=== PATIENT | male | born 1960 | race Hispanic/Latino ===

== ENCOUNTER 2019-02-17 08:01 | Inpatient (IN) | payer MEDICARE ==
[2019-02-17] MEDS ORDERED: Ondansetron PF 4 MG/2 ML Vial ONE (08:10)
[2019-02-17 08:47] LABS: ALT (SGPT) Less than 7 U/L (8-55); AST (SGOT) 9 U/L (5-34); Albumin 4.1 g/dL (3.5-5.0); Alkaline Phosphatase 83 U/L (40-150); Anion Gap 21 mmol/L (10-20); BUN (Urea Nitrogen) 16 mg/dL (8.4-25.7); Bilirubin, Total 0.3 mg/dL (0.2-1.2); Calc. Creatinine Clearance 0 mL/min (70-130); Chloride 109 mmol/L (98-107); Estimated GFR-MDRD 46; Globulin 3.4 g/dL (2.4-3.5); Glucose 424 mg/dL (70-105); Magnesium 1.7 mg/dL (1.6-2.6); Phosphorus 2.4 mg/dL (2.3-4.7); Potassium 4.3 mmol/L (3.5-5.1); Protein, Total 7.5 g/dL (6.0-8.3); Sodium 134 mmol/L (136-145)
[2019-02-17 08:50] LABS: Carbon Dioxide 8 mmol/L (22-29)
[2019-02-17] MEDS ORDERED: HUMULIN R 100 UNITS in Sodium Chloride 0.9% 100 ML IVPB SCH ×2 (09:00→12:00)
[2019-02-17] MEDS ORDERED: Ondansetron ODT 4 MG TAB SL PRN (09:00)
[2019-02-17] MEDS ORDERED: Lactated Ringer's 1,000 ML IV SCH (09:00)
[2019-02-17] MEDS ORDERED: Ondansetron PF 4 MG/2 ML Vial IVP PRN ×2 (09:00→12:00)
[2019-02-17 09:07] LABS: #Lymphocytes 1.3 thou/uL (1.20-3.40); #Monocytes 0.7 thou/uL (0.11-0.59); #Neutrophils 3.4 thou/uL (1.40-6.50); %Basophils 0.8 % (0.0-1.0); %Eosinophils 0.8 % (0.0-10.0); %Lymphocytes 24.1 % (21.0-51.0); %Monocytes 12.2 % (0.0-10.0); %Neutrophils 62.1 % (42.0-75.0); Anisocytosis SLIGHT = 6-15 cells (100X) (0-5/hpf); Hemoglobin 6.3 g/dL (14.0-18.0); Hypochromia SLIGHT = 6-15 cells (100X) (0-5/hpf); MDiff Complete? YES; Mean Corpuscular HGB CONC 29.2 g/dL (32.0-36.0); Mean Corpuscular Hemoglobin 23.2 pg (27.0-31.0); Mean Corpuscular Volume 79.6 fL (78.0-98.0); Mean Platelet Volume 9.3 fL (7.4-10.4); Platelet Count 424 thou/uL (130-400); Poikilocytosis SLIGHT = 6-15 cells (100X) (0-5/hpf); RBC Distribution Width 20.8 % (11.5-14.5); Red Blood Cell (RBC) Count 2.72 mill/uL (4.70-6.10); White Blood Cell (WBC) Count 5.5 thou/uL (4.8-10.8)
--- NOTE | 2019-02-17 09:39 | PDOC.FPRHP ---
- History of Present Illness Chief Complaint: fatigue and dehydration History of Present Illness: Patient reports increasing worsening fatigue since Wednesday. Decreased appetite & PO intake. Denies any N/V/diarrhea but does endorse constipation since he has not been eating at all this week. No melena or hematochezia. Checks his BG at home and says "they have been running really high." Reported h/o vit D def and anemia that he has just treated with supplementation in the past. Has never received a blood transfusion. Colonoscopy in [place] > 3 years ago that was significant for polyps but does not recall when it was recommended that he have another procedure. His father of colon cancer at 57. Has not taken home meds for last 3 days. States that this morning he was so weak that he was unable to ambulate to the bathroom prompting him to go to the ED today. ED Course: Labs in the ED: glucose 414, Hgb 6.3 - Allergies/Adverse Reactions Allergies Allergy/AdvReac Type Severity Reaction Status Date / Time Iodine and Iodide Containing Allergy Verified 02/17/19 08:58 Produc - Home Medications Medication Instructions Recorded Confirmed Type Insulin Degludec [Tresiba] 35 unit SQ DAILY 02/17/19 02/17/19 History Metoprolol Succinate 100 mg PO DAILY 02/17/19 02/17/19 History QUEtiapine Fumarate [Quetiapine 50 mg PO HS 02/17/19 02/17/19 History Fumarate ER] Sertraline HCl 100 mg PO HS 02/17/19 02/17/19 History Topiramate 50 mg PO BID 02/17/19 02/17/19 History - History PMHx: DMII, anemia, migraines, depression, anxiety, HTN PSHx: gastric bypass (1999) & hernia repair FHx: CVA- Sister DMII- Mother & sisters Father from colon CA at age 56. Social: No TAD. Lives at home and is on disability. - Review of Systems General: denies: fever/chills Eyes: denies: eye pain, vision changes ENT: denies: nasal congestion, rhinorrhea Respiratory: reports: cough, shortness of breath Cardiovascular: denies: chest pain, palpitation Gastrointestinal: reports: nausea, constipation. denies: vomiting, diarrhea, GI bleeding Genitourinary: reports: polyuria. denies: dysuria Skin: denies: rashes, lesions Musculoskeletal: denies: pain, tenderness Neurological: reports: other (lightheadedness). denies: syncope Psychological: reports: anxiety, depression - Vital signs BP: 132/71 HR: 77 RR: 16 Tmax: 98.4F Pox: 100% on RA Wt: 111 kg - Physical Exam Constitutional: NAD, awake, alert and oriented HEENT: PERRLA, EOMI -HEENT: Pale conjunctiva, dry mucous membranes Neck: supple, no LAD Heart: RRR, normal S1/S2, pulses present, no edema Lungs: CTAB, good air movement Abdomen: soft, non-tender, bowel sounds present Musculoskeletal: normal structure, normal tone Neurological: no focal deficit -Skin: Pale Heme/Lymphatic: no unusual bruising or bleeding, no purpura, no petechia Psychiatric: normal mood and affect, good judgment and insight FMR H&P: Results - Labs Result Diagrams: 02/17/19 08:20 02/17/19 15:26 Lab results: WBC 5.5 thou/uL (4.8-10.8) 02/17/19 08:20 Hgb 6.3 g/dL (14.0-18.0) L 02/17/19 08:20 Hct 21.6 % (42.0-52.0) L 02/17/19 08:20 MCV 79.6 fL (78.0-98.0) 02/17/19 08:20 Plt Count 424 thou/uL (130-400) H 02/17/19 08:20 Neutrophils % 62.1 % (42.0-75.0) 02/17/19 08:20 Sodium 134 mmol/L (136-145) L 02/17/19 08:20 Potassium 4.3 mmol/L (3.5-5.1) 02/17/19 08:20 Chloride 109 mmol/L (98-107) H 02/17/19 08:20 Carbon Dioxide 8 mmol/L (22-29) L* 02/17/19 08:20 BUN 16 mg/dL (8.4-25.7) 02/17/19 08:20 Creatinine 1.54 mg/dL (0.7-1.3) H 02/17/19 08:20 Glucose 424 mg/dL (70-105) H 02/17/19 08:20 Lactic Acid 0.7 mmol/L (0.5-2.2) 02/17/19 08:58 Calcium 9.0 mg/dL (7.8-10.44) 02/17/19 08:20 Total Bilirubin 0.3 mg/dL (0.2-1.2) 02/17/19 08:20 AST 9 U/L (5-34) 02/17/19 08:20 ALT Less than 7 U/L (8-55) L 02/17/19 08:20 Alkaline Phosphatase 83 U/L (40-150) 02/17/19 08:20 Serum Total Protein 7.5 g/dL (6.0-8.3) 02/17/19 08:20 Albumin 4.1 g/dL (3.5-5.0) 02/17/19 08:20 FMR H&P: A/P - Plan DKA: - BG 424, gap of 16, + ketones - Recent medication non-compliance - s/p 1L NS in the ED. Will start on an insulin drip and NS w/ 20mEq of K @ 250mL/hr. - Will keep NPO and check Q4H BMPs until gap closes. - PRN IV zofran for nausea. - DKA protocol initiated Symptomatic anemia: - Hgb of 6.3, with hgb of 15 one month ago - FHx of colon CA in father, previous scope >3 years ago significant for polyps - FOBT ordered - Consult GI - 2U of PRBCs to be transfused now and will recheck a Hemagram 4 hours after 2nd unit has been transfused. MIAN: - Cr of 1.54 on admission and WNLs at 0.9 on 01/24 per chart review. Likely pre- renal 2/2 decreased PO intake and polyuria from DKA. - Will continue IVFs per DKA protocol & continue to monitor w/ QD BMPs. Possible UTI: - Patient's UA significant for high ketones, BG, LE and 11-20 WBCs but no bacteria or blood noted. - Urine culture pending. Will consider initiating abx pending culture results as patient is currently asymptomatic. DMII: - Patient in DKA as described above. - Will address this as outline above and will switch back to home regimen once tolerating PO and DKA has resolved. HTN: - Will resume home meds once tolerating PO. Migraines: - Will resume home meds once tolerating PO. Anxiety/depression: - Will resume home meds once tolerating PO. Disposition/LOS: Dispo: Stable, admit to ICU on DKA protocol and transfuse LOS: 2-4 FMR H&P: Upper Level - Pertinent history 58YOM with a PMH significant for DMII and HTN who presented to the ED via EMS for hyperglycemia. Per the patient he has not been feeling like his usual self for the last couple of weeks with reported progressively worsening fatigue and SOB on exertion. Per chart review he had a Hgb level of 5.5 in clinic ~2 weeks ago after presenting there complaining of fatigue. He finally decided to come to the ED today because this morning his symptoms were noted to be so severe that he could barely walk from his bedroom to the bathroom without getting severely fatigued and SOB. He reports that he has not taken any of his home meds since ~ Wednesday and has had associated decreased PO intake with nausea but no vomiting or diarrhea. HE He also reports polyuria and polydipsia. Denies any associated fever, abdominal pain, dysuria or hematuria but reports chills. - Pertinent findings Laboratory Tests 02/17/19 09:39 Urine Protein 30 A Urine Glucose (UA) Greater than 1000 A Urine Ketones 150 A Ur Leukocyte Esterase 75 A Urine WBC 11-20 A Urine Bacteria None Seen Hgb 6.3 Na 134 K 4.3 Cl 109 HCO3 8 BUN 16 Cr 1.59 BG 424 Serum ketones 6.81 PE: Vitals: BP: 132/71 HR: 77 RR: 16 Tmax: 98.4F Pox: 100% on RA Wt: 111 kg GEN: Laying in bed in NAD HEENT: sclera and conjunctive clear with conjunctival pallor noted; Dry mucus membranes CV: RRR, no murmurs Resp: CTAB, no respiratory distress GI: soft, nondistended, non-TTP, normal bowel sounds MSK: Full ROM in all extremities Neuro: No focal deficits & stock worker and deliverer grossly intact Skin: No rashes noted Heme: No abnormal bruising noted Psych: A&Ox4 - Plan Date/Time: 02/17/19 0938 58YOM with a PMH significant for poorly controlled DMII and HTN who presented to the ED with a CC of progressively worsening fatigue and SOB found to be severely anemic and in DKA. DKA: - BG level on presentation elevated at 424 with an AG of 16 and elevated blood ketones. Likely 2/2 medication non-compliance but UA also + for LE and WBCs so could also have been precipitated by an acute infection. - s/p 1L NS in the ED. Will start on an insulin drip and NS w/ 20mEq of K @ 250mL/hr. - Will keep NPO and check Q4H BMPs until gap closes. - PRN IV zofran for nausea. Symptomatic anemia: - Hgb of 6.3 on presentation but denies any GI blood losses. However, FH + for colon CA in his father who from it at age 56 and patient reports a h/o of a prior scope ~3 years ago during which polyps were removed. - Will check and FOBT but even if negative will consult GI for likely need for colonoscopy to evaluate for source of bleed. - Will also order 2U of PRBCs to be transfused now and will recheck a Hemagram 4 hours after 2nd unit has been transfused. MIAN: - Cr of 1.54 on admission and WNLs at 0.9 on 01/24 per chart review. Likely pre- renal 2/2 decreased PO intake and polyuria from DKA. - Will continue IVFs per DKA protocol & continue to monitor w/ QD BMPs. Possible UTI: - Patient's UA significant for high ketones, BG, LE and 11-20 WBCs but no bacteria or blood noted. - Urine culture pending. Will consider initiating abx pending culture results as patient is currently asymptomatic. DMII: - Patient in DKA as described above. - Will address this as outline above and will switch back to home regimen once tolerating PO and DKA has resolved. HTN: - Will resume home meds once tolerating PO. Migraines: - Will resume home meds once tolerating PO. Anxiety/depression: - Will resume home meds once tolerating PO. Dispo: Anticipated LOS >2 midnights pending clinical course. Will admit to IMCU to continue on insulin drip for DKA. Abx: none IVFs: GI PPX: protonix DVT PPx: SCDs CODE STATUS: FULL CODE PCP: DEVEN Rodrigez I, Beatriz Sy, have evaluated this patient and agree with findings/plan as outlined by hr internship resident. Pertinent changes/additions are listed here. Addendum - Attending - Attending Attestation Date/Time: 02/17/19 [id number] I personally evaluated the patient and discussed the management with Dr. Melendrez and Yossi I agree with the History, Examination, Assessment and Plan documented above with any addition or exceptions noted below. The patient presented with worsening fatigue. He was found to be in DKA and noted he has been out of insulin for about 2 weeks. He also has symptomatic anemia with hemoglobin dropping from 15 in September in our clinic to about 6. Will initiate DKA protocol. Check FOBT, consult GI as he should likely have a colonoscopy to further workup his anemia. Will transfuse 2 units PRBCs. He is being admitted to the IMCU. Pt also has an MIAN and we will trend labs. Continue fluids through dka protocol.
[2019-02-17 10:13] LABS: Bacteria/HPF None Seen HPF (None Seen); Bilirubin Negative (Negative); Blood, Urine Negative (Negative); Clarity Clear (Clear); Glucose, Urine (Dipstick) Greater than 1000 mg/dL (Negative); Leukocyte 75 Leu/uL (Negative); Nitrite Negative (Negative); Protein, Urine (Dipstick) 30 mg/dL (Neg-Trace); RBC/HPF 0-3 HPF (0-3); Squamous Epithelial 0-3 HPF (0-3); Urobilinogen Normal mg/dL (Less than 2)
[2019-02-17] MEDS ORDERED: Ondansetron ODT 4 MG TAB PO PRN (12:00)
[2019-02-17] MEDS ORDERED: Dextrose 5 %-0.45 % NaCl 1,000 ML IV PRN (12:00)
[2019-02-17] MEDS ORDERED: NS 0.9% w/ 20 MEQ KCL 1,000 ML IV PRN ×2 (12:00)
[2019-02-17] MEDS ORDERED: Sodium Chloride 0.9% 1,000 ML IV PRN ×4 (12:00)
[2019-02-17 12:07] LABS: Troponin I Less than 0.010 ng/mL (< 0.028)
[2019-02-17 12:32] LABS: Anion Gap 21 mmol/L (10-20); BUN (Urea Nitrogen) 16 mg/dL (8.4-25.7); Calc. Creatinine Clearance 87 mL/min (70-130); Calcium 8.7 mg/dL (7.8-10.44); Chloride 111 mmol/L (98-107); Estimated GFR-MDRD 51; Glucose 300 mg/dL (70-105); Potassium 4.1 mmol/L (3.5-5.1); Sodium 136 mmol/L (136-145)
[2019-02-17 12:35] LABS: Carbon Dioxide 8 mmol/L (22-29)
[2019-02-17] MEDS ORDERED: Potassium Chloride 40 MEQ in Sodium Chloride 0.9% 250 ML 250 ML IVPB PRN (12:39)
[2019-02-17] MEDS ORDERED: Magnesium Oxide 400 MG TAB PO PRN (12:39)
[2019-02-17] MEDS ORDERED: Potassium Phosphate 9 MMOL in Sodium Chloride 0.9% 100 ML IVPB PRN (12:39)
[2019-02-17] MEDS ORDERED: Potassium Phosphate 15 MMOL in Sodium Chloride 0.9% 250 ML 250 ML IV PRN (12:39)
[2019-02-17] MEDS ORDERED: Potassium Phosphate 12 MMOL in Sodium Chloride 0.9% 250 ML 250 ML IV PRN (12:39)
[2019-02-17] MEDS ORDERED: Potassium Chloride 40 MEQ in Premix Bag 1 BAG IVPB PRN (12:39)
[2019-02-17] MEDS ORDERED: Potassium Chloride 20 MEQ TAB PO PRN (12:39)
[2019-02-17] MEDS ORDERED: Magnesium 2 GM/50 ML 2 GM in Premix Bag 1 BAG IVPB PRN (12:39)
[2019-02-17] MEDS ORDERED: PHOS-NAK 1 PKT PACK PO PRN (12:39)
[2019-02-17 15:51] LABS: Anion Gap 15 mmol/L (10-20); BUN (Urea Nitrogen) 14 mg/dL (8.4-25.7); Calc. Creatinine Clearance 105 mL/min (70-130); Calcium 7.8 mg/dL (7.8-10.44); Carbon Dioxide 12 mmol/L (22-29); Chloride 113 mmol/L (98-107); Estimated GFR-MDRD 63; Glucose 293 mg/dL (70-105); Potassium 3.5 mmol/L (3.5-5.1); Sodium 136 mmol/L (136-145)
[2019-02-17] MEDS ORDERED: GoLYTELY 4,000 ml Bottle PO SCH (17:30)
[2019-02-17 17:48] LABS: Anion Gap 15 mmol/L (10-20); BUN (Urea Nitrogen) 13 mg/dL (8.4-25.7); Calc. Creatinine Clearance 117 mL/min (70-130); Calcium 8.6 mg/dL (7.8-10.44); Carbon Dioxide 12 mmol/L (22-29); Chloride 114 mmol/L (98-107); Estimated GFR-MDRD 71; Glucose 130 mg/dL (70-105); Magnesium 1.5 mg/dL (1.6-2.6); Potassium 3.5 mmol/L (3.5-5.1); Sodium 137 mmol/L (136-145)
[2019-02-17 17:49] LABS: Phosphorus 1.4 mg/dL (2.3-4.7)
[2019-02-17] MEDS: Ketorolac Tromethamine 30 MG/ML VIAL IVP SCH (17:50)
[2019-02-17] MEDS: D5 1/2 NS w/20 mEq KCL 1,000 ML IV PRN (20:36)
[2019-02-17] MEDS: Pantoprazole 40 MG VIAL IVP SCH (20:37)
[2019-02-17] MEDS: Magnesium Oxide 400 MG TAB PO PRN (20:39)
[2019-02-17] MEDS: PHOS-NAK 1 PKT PACK PO PRN (20:40)
[2019-02-18 00:26] LABS: #Eosinphils 0.1 thou/uL (0.0-0.7); #Lymphocytes 1.9 thou/uL (1.20-3.40); #Monocytes 0.7 thou/uL (0.11-0.59); #Neutrophils 2.4 thou/uL (1.40-6.50); %Basophils 0.9 % (0.0-1.0); %Lymphocytes 37.2 % (21.0-51.0); %Monocytes 12.7 % (0.0-10.0); %Neutrophils 47.1 % (42.0-75.0); Hemoglobin 6.7 g/dL (14.0-18.0); Mean Corpuscular HGB CONC 31.2 g/dL (32.0-36.0); Mean Corpuscular Hemoglobin 24.9 pg (27.0-31.0); Mean Corpuscular Volume 79.8 fL (78.0-98.0); Mean Platelet Volume 8.8 fL (7.4-10.4); Platelet Count 338 thou/uL (130-400); Red Blood Cell (RBC) Count 2.69 mill/uL (4.70-6.10); White Blood Cell (WBC) Count 5.1 thou/uL (4.8-10.8)
[2019-02-18 00:35] LABS: Anion Gap 12 mmol/L (10-20); BUN (Urea Nitrogen) 11 mg/dL (8.4-25.7); Calc. Creatinine Clearance 118 mL/min (70-130); Calcium 7.8 mg/dL (7.8-10.44); Carbon Dioxide 15 mmol/L (22-29); Chloride 110 mmol/L (98-107); Estimated GFR-MDRD 72; Glucose 199 mg/dL (70-105); Magnesium 1.5 mg/dL (1.6-2.6); Potassium 3.3 mmol/L (3.5-5.1); Sodium 134 mmol/L (136-145)
[2019-02-18 00:39] LABS: Phosphorus 1.3 mg/dL (2.3-4.7)
[2019-02-18] MEDS: D5 1/2 NS w/20 mEq KCL 1,000 ML IV PRN ×2 (01:31→06:22)
--- NOTE | 2019-02-18 06:50 | PDOC.FM ---
- Subjective Subjective: Patient had reported runs of a flutter overnight but had low Mg, phos & K levels that had to be corrected. Otherwise, tolerating clear liquids well. Denies any chest pain, SOB, fever/chills or blood in stool. - Objective MAR Reviewed: Yes Vital Signs & Weight: Vital Signs (12 hours) Temp Pulse Resp BP Pulse Ox 02/18/19 03:44 97.8 F 02/18/19 01:45 98.1 F 02/17/19 23:44 98.0 F 02/17/19 20:33 98.1 F 71 14 117/59 L 98 02/17/19 19:51 98.2 F Weight Weight 111.1 kg Most Recent Monitor Data Heart Rate from ECG 84 NIBP 140/71 NIBP BP-Mean 94 Respiration from ECG 19 SpO2 99 I&O: 02/16/19 02/17/19 02/18/19 06:59 06:59 06:59 Intake Total 8742.8 Output Total 1375 Balance 7367.8 Result Diagrams: 02/18/19 00:08 02/18/19 00:08 Phys Exam - Physical Examination Constitutional: NAD HEENT: moist MMs, sclera anicteric conjunctival pallor noted Neck: supple, full ROM Respiratory: no wheezing, no rales, no rhonchi, clear to auscultation bilateral Cardiovascular: RRR, no significant murmur Gastrointestinal: soft, non-tender, positive bowel sounds Musculoskeletal: no edema, pulses present Neurological: non-focal, moves all 4 limbs Psychiatric: normal affect, A&O x 3 Skin: no rash, normal turgor, cap refill <2 seconds Dx/Plan (1) Diabetic ketoacidosis Code(s): E11.10 - TYPE 2 DIABETES MELLITUS WITH KETOACIDOSIS WITHOUT COMA Status: Acute (2) DMII (diabetes mellitus, type 2) Status: Acute (3) HTN (hypertension) Code(s): I10 - ESSENTIAL (PRIMARY) HYPERTENSION Status: Acute (4) Anxiety Code(s): F41.9 - ANXIETY DISORDER, UNSPECIFIED Status: Acute (5) Depression Code(s): F32.9 - MAJOR DEPRESSIVE DISORDER, SINGLE EPISODE, UNSPECIFIED Status : Acute (6) Hx of migraines Code(s): Z86.69 - PERSONAL HISTORY OF DIS OF THE NERVOUS SYS AND SENSE ORGANS Status: Acute (7) Hypokalemia Code(s): E87.6 - HYPOKALEMIA Status: Acute (8) Hypophosphatemia Code(s): E83.39 - OTHER DISORDERS OF PHOSPHORUS METABOLISM Status: Acute (9) Hypomagnesemia Code(s): E83.42 - HYPOMAGNESEMIA Status: Acute (10) Atrial flutter Code(s): I48.92 - UNSPECIFIED ATRIAL FLUTTER Status: Acute - Plan Plan: 58YOM with a PMH significant for poorly controlled DMII and HTN who presented to the ED with a CC of progressively worsening fatigue and SOB found to be severely anemic and in DKA. DKA: - BG level on presentation elevated at 424 with an AG of 16 and elevated blood ketones. Likely 2/2 medication non-compliance but UA also + for LE and WBCs so could also have been precipitated by an acute infection. - s/p 1L NS in the ED & DKA protocol fluids overnight. AG closed but last BMP showed BG of 199. Will continue insulin drip @ 3U/hr and IVFs w/ D5 NS w/ 20mEq of K @ 250mL/hr pending next BMP. If BG still <200 will give normal SQ insulin and continue drip for 1 hour s/p SQ dosing before discontinuing. - PRN IV zofran for nausea. Symptomatic anemia: - Hgb of 6.3 on presentation but denies any GI blood losses. However, FH + for colon CA in his father who from it at age 56 and patient reports a h/o of a prior scope ~3 years ago during which polyps were removed. - FOBT still pending but GI already on board as Hgb only david to 6.7 s/p 2U of PRBCs requiring a third unit to be transfused overnight. Plans are to undergo an EGD and colonoscopy today per patient & nurse. - AM CBC pending. Atrial flutter: - Patient had a run of atrial flutter overnight. Likely 2/2 electrolyte derangements. Will continue close monitoring and correct electrolytes PRN per CCU replacement protocols Hypokalemia: - K 3.3 with last BMP @ 00:00. - Will continue to 20mEq Kcl in IVFs and replace per CCU protocol PRN. Hypomagesemia: - Mg 1.3 @ 00:00. s/p PO replacement. - Will continue to monitor & replace per CCU protocol PRN. Hypophosphatemia: - Phos level of 1.3 per last BMP. s/p PO replacement. - Will continue to monitor & replace per CCU protocol PRN. MIAN, improving: - Cr of 1.54 on admission but down to 1.19 with latest BMP s/p aggressive IVFs since admission. Likely pre-renal 2/2 decreased PO intake and polyuria from DKA. - Will continue IVFs per DKA protocol & continue to monitor w/ QD BMPs. Possible UTI: - Patient's UA significant for high ketones, BG, LE and 11-20 WBCs but no bacteria or blood noted. - Urine culture pending. Will consider initiating abx pending culture results as patient is currently asymptomatic. DMII: - Patient in DKA as described above. - Will address this as outline above and will switch back to home regimen once tolerating PO and BG levels are <200. HTN: - Will resume home meds once tolerating PO. Migraines: - Will resume home meds once tolerating PO. Anxiety/depression: - Will resume home meds once tolerating PO. Dispo: Will continue close monitoring in the IMCU while patient remains on the insulin drip for DKA. Abx: none IVFs: D5 1/2 NS w/ 20mEq KCL @ 250mL/hr GI PPX: protonix DVT PPx: SCDs CODE STATUS: FULL CODE PCP: DEVEN Rodrigez
[2019-02-18 08:56] LABS: Anion Gap 11 mmol/L (10-20); BUN (Urea Nitrogen) 8 mg/dL (8.4-25.7); Calc. Creatinine Clearance 149 mL/min (70-130); Calcium 8.4 mg/dL (7.8-10.44); Carbon Dioxide 18 mmol/L (22-29); Chloride 112 mmol/L (98-107); Estimated GFR-MDRD Greater than 90; Glucose 110 mg/dL (70-105); Iron 29 ug/dL (65-175); Iron Binding Capacity, Total 310 mcg/dL (261-462); Magnesium 1.6 mg/dL (1.6-2.6); Potassium 3.5 mmol/L (3.5-5.1); Sodium 137 mmol/L (136-145)
[2019-02-18 08:58] LABS: Phosphorus 1.3 mg/dL (2.3-4.7)
[2019-02-18] MEDS ORDERED: INSULIN DEGLUDEC 35 UNIT SQ SCH ×2 (09:00)
[2019-02-18 09:04] LABS: Band 1 % (5-11); Eosinophils 3 % (0-10); Hemoglobin 8.2 g/dL (14.0-18.0); Lymphocytes 33 % (21-51); MDiff Complete? YES; Mean Corpuscular HGB CONC 31.1 g/dL (32.0-36.0); Mean Corpuscular Hemoglobin 25.3 pg (27.0-31.0); Mean Corpuscular Volume 81.4 fL (78.0-98.0); Mean Platelet Volume 8.8 fL (7.4-10.4); Monocytes 9 % (0-10); Neutrophil 54 % (42-75); Nucleated RBC 2 % (0); Platelet Count 330 thou/uL (130-400); Red Blood Cell (RBC) Count 3.24 mill/uL (4.70-6.10); White Blood Cell (WBC) Count 4.7 thou/uL (4.8-10.8)
[2019-02-18 09:23] LABS: Iron 28 ug/dL (65-175); Iron Binding Capacity, Total 290 mcg/dL (261-462)
[2019-02-18] MEDS: PHOS-NAK 1 PKT PACK PO PRN (11:10)
[2019-02-18] MEDS: Pantoprazole 40 MG VIAL IVP SCH ×2 (11:16→20:35)
[2019-02-18] MEDS: Topiramate 25 MG TAB PO SCH ×2 (11:16→20:35)
--- NOTE | 2019-02-18 11:16 | PRG ---
DATE OF SERVICE: 02/18/2019 I have discussed the case with Dr. Beatriz Sy and agreed with her assessment and plan. Mr. Robertson is a pleasant 58-year-old male, who was admitted in diabetic ketoacidosis. He was also found to be profoundly anemic with iron studies consistent with iron deficiency anemia. GI has been consulted for EGD and colonoscopy, for which he is now undergoing a prep. This morning, his bicarb has returned to normal at 18, his glucose is 110, his anion gap is 11. All these parameters indicate that he is no longer in DKA. We will feed him in accordance with his bowel prep and begin subcu insulin. Job ID: [id number]
[2019-02-18] MEDS ORDERED: Lidocaine 1% PF 5 ML VIAL ONE (13:25)
[2019-02-18] MEDS ORDERED: PROPOFOL 200 MG/20 ML VIAL ONE (13:25)
[2019-02-18] MEDS ORDERED: Promethazine HCl 25 MG/ML VIAL SLOW IVP PRN (15:01)
[2019-02-18] MEDS ORDERED: Promethazine HCl 25 MG/ML VIAL IM PRN (15:01)
[2019-02-18] MEDS ORDERED: Ondansetron HCl/PF 4 MG/2 ML Vial IVP PRN (15:01)
[2019-02-18] MEDS: Insulin Glargine 35 UNITS in Pre-Filled Syringe 1 EACH SC SCH (15:24)
[2019-02-18] MEDS: CCU Electrolyte Replacement 1 EACH IVPB SCH (17:59)
[2019-02-18] MEDS ORDERED: Ketorolac Tromethamine 30 MG/ML VIAL ONE (18:31)
[2019-02-18] MEDS: Ketorolac Tromethamine 30 MG/ML VIAL IVP SCH (18:33)
--- NOTE | 2019-02-18 22:30 | OP ---
DATE OF PROCEDURE: 02/18/2019 OPERATIVE PROCEDURE: Colonoscopy. PREOPERATIVE DIAGNOSES: Colon polyp, family history of colon cancer, anemia. POSTOPERATIVE DIAGNOSES: 1. Sigmoid diverticular disease. 2. Hemorrhoids. There was no other pathology seen. DESCRIPTION OF PROCEDURE: The patient was placed on his left lateral position and was given sedation by Anesthesia Department. A rectal exam was done before the scope was advanced into the rectum. No lesions felt on rectal exam. A Pentax video colonoscope was introduced into the rectum and advanced all the way into the cecum. The prep was good. The mucosa appears normal throughout the colon. The appendiceal orifice, ileocecal wall, and cecum, no pathology seen. Withdrawal of scope from the cecum, ascending colon, hepatic flexure, no pathology seen. The transverse colon, splenic flexure, descending colon, no pathology. The sigmoid colon shows scattered diverticula. Rectum showed hemorrhoids. Job ID: [id number]
[2019-02-19] MEDS ORDERED: Metoprolol Tartrate 50 MG TAB PO SCH (00:45)
[2019-02-19 05:43] LABS: Anion Gap 9 mmol/L (10-20); BUN (Urea Nitrogen) 4 mg/dL (8.4-25.7); Calc. Creatinine Clearance 187 mL/min (70-130); Calcium 8.3 mg/dL (7.8-10.44); Carbon Dioxide 21 mmol/L (22-29); Chloride 111 mmol/L (98-107); Estimated GFR-MDRD Greater than 90; Glucose 178 mg/dL (70-105); Magnesium 1.4 mg/dL (1.6-2.6); Potassium 3.1 mmol/L (3.5-5.1); Sodium 138 mmol/L (136-145)
[2019-02-19 05:45] LABS: Phosphorus 2.3 mg/dL (2.3-4.7)
[2019-02-19] MEDS: Magnesium Oxide 400 MG TAB PO PRN (05:57)
[2019-02-19 06:13] LABS: Anisocytosis SLIGHT = 6-15 cells (100X) (0-5/hpf); Band 4 % (5-11); Eosinophils 2 % (0-10); Hemoglobin 8.1 g/dL (14.0-18.0); Lymphocytes 46 % (21-51); MDiff Complete? YES; Mean Corpuscular Hemoglobin 25.9 pg (27.0-31.0); Mean Corpuscular Volume 80.8 fL (78.0-98.0); Mean Platelet Volume 9.2 fL (7.4-10.4); Monocytes 13 % (0-10); Neutrophil 34 % (42-75); Platelet Count 342 thou/uL (130-400); Platelet Morphology Comment Appears Adequate; Polychromasia SLIGHT = 2-3 cells (100X) (0-2/hpf); Red Blood Cell (RBC) Count 3.14 mill/uL (4.70-6.10); White Blood Cell (WBC) Count 3.8 thou/uL (4.8-10.8)
[2019-02-19] MEDS ORDERED: Dextrose 50% Abboject 50 ML SYRINGE SLOW IVP PRN (06:41)
[2019-02-19] MEDS ORDERED: Insulin Regular 300 UNITS/3 ML VIAL SC PRN (06:41)
[2019-02-19] MEDS ORDERED: Dextrose 5% in Water 1,000 ML IV PRN (06:41)
--- NOTE | 2019-02-19 06:41 | PDOC.FM ---
- Subjective Subjective: Patient had persistent runs of atrial flutter overnight but converted with a 50mg dose of metoprolol. Patient reports that he feels much better this AM. - Objective MAR Reviewed: Yes Vital Signs & Weight: Vital Signs (12 hours) Temp Pulse Ox 02/19/19 03:00 98.0 F 02/18/19 20:00 98.2 F 100 Weight Admit Weight 111.1 kg Weight 112.519 kg Most Recent Monitor Data Heart Rate from ECG 73 NIBP 145/78 NIBP BP-Mean 100 Respiration from ECG 16 SpO2 100 I&O: 02/17/19 02/18/19 02/19/19 06:59 06:59 06:59 Intake Total 8742.8 6450 Output Total 1375 6450 Balance 7367.8 0 Result Diagrams: 02/19/19 04:53 02/19/19 04:53 Phys Exam - Physical Examination Constitutional: NAD HEENT: moist MMs Neck: supple, full ROM Respiratory: no wheezing, no rales, no rhonchi, clear to auscultation bilateral Cardiovascular: RRR, no significant murmur Neurological: non-focal, moves all 4 limbs Psychiatric: normal affect, A&O x 3 Skin: no rash, normal turgor Dx/Plan (1) Diabetic ketoacidosis Code(s): E11.10 - TYPE 2 DIABETES MELLITUS WITH KETOACIDOSIS WITHOUT COMA Status: Acute (2) DMII (diabetes mellitus, type 2) Status: Acute (3) HTN (hypertension) Code(s): I10 - ESSENTIAL (PRIMARY) HYPERTENSION Status: Acute (4) Anxiety Code(s): F41.9 - ANXIETY DISORDER, UNSPECIFIED Status: Acute (5) Depression Code(s): F32.9 - MAJOR DEPRESSIVE DISORDER, SINGLE EPISODE, UNSPECIFIED Status : Acute (6) Hx of migraines Code(s): Z86.69 - PERSONAL HISTORY OF DIS OF THE NERVOUS SYS AND SENSE ORGANS Status: Acute (7) Hypokalemia Code(s): E87.6 - HYPOKALEMIA Status: Acute (8) Hypophosphatemia Code(s): E83.39 - OTHER DISORDERS OF PHOSPHORUS METABOLISM Status: Acute (9) Hypomagnesemia Code(s): E83.42 - HYPOMAGNESEMIA Status: Acute (10) Atrial flutter Code(s): I48.92 - UNSPECIFIED ATRIAL FLUTTER Status: Acute - Plan Plan: 58YOM with a PMH significant for poorly controlled DMII and HTN who presented to the ED with a CC of progressively worsening fatigue and SOB found to be severely anemic and in DKA. DKA, resolved: - BG level on presentation elevated at 424 with an AG of ~17 and elevated blood ketones. Likely 2/2 medication non-compliance as UA also + for LE and WBCs but Cx negative. - AG closed since 02/17 and patient now on regular SQ insulin w/ moderate SS. - PRN IV zofran for nausea. Symptomatic anemia: - Hgb of 6.3 on presentation but denies any GI blood losses. Colonoscopy yesterday notable only for hemorrhoids. - Hgb stable at 8.1 this AM s/p 3U of PRBCs since admission. - Will continue to monitor and transfuse PRN for Hgb levels <7. Will also start on PO Iron given low Fe & ferritin levels. - Peripheral smear read & RBC folate pending. B12 WNLs. DMII: - Will continue home insulin regimen w/ mild SSI and ACHS accuchecks. Will adjust home insulin PRN based on SSI required in addition to 35U lantus. Atrial flutter: - Patient had runs of atrial flutter again overnight but converted with 50mg PO metoprolol. Likely 2/2 electrolyte derangements. Will continue close monitoring and correct electrolytes PRN per CCU replacement protocols. Will also resume home metoprolol dosing today. - Will consider consulting cards due to new onset arrhythmia. Hypokalemia: - K 3.1 this AM. - Will replace with 40mEq PO this AM and with lunch & recheck @ ~16:00. - Will continue to monitor & replace PRN. Hypomagesemia: - Mg 1.4 this AM s/p PO replacement. - Will continue to monitor & replace PRN. Hypophosphatemia, resolved: - Phos level of 2.3 this AM. - Will continue to monitor & replace PRN. MIAN, resolved: - Cr of 0.67 this AM. - Will continue to monitor with QD BMPs. Possible UTI, ruled out: - Patient's UA significant for high ketones, BG, LE and 11-20 WBCs but Cx negative. HTN: - Will continue home meds. Migraines: - Will continue home meds. Anxiety/depression: - Will continue home meds. Dispo: Will consider moving out of the CCU to the floor today now that patient is off of the insulin drip and DKA has resolved. Abx: none IVFs: SL GI PPX: protonix DVT PPx: SCDs CODE STATUS: FULL CODE PCP: DEVEN Rodrigez
[2019-02-19] MEDS: Pantoprazole 40 MG VIAL IVP SCH (10:04)
[2019-02-19] MEDS: Insulin Glargine 35 UNITS in Pre-Filled Syringe 1 EACH SC SCH (10:04)
[2019-02-19] MEDS: Topiramate 25 MG TAB PO SCH ×2 (10:04→21:09)
--- NOTE | 2019-02-19 10:49 | PRG ---
DATE OF SERVICE: 02/19/2019 SUBJECTIVE: Mr. Oswaldo Robertson is a 58-year-old male with diabetes mellitus, history of colon polyp, and family history of colon cancer. He also has gastric bypass surgery more than 18 years ago. He has history of acid reflux. He was seen because of anemia. He had a colonoscopy yesterday, which revealed hemorrhoids and sigmoid diverticular disease. The EGD showed what appears to be Han's mucosa and ulcer of the GE junction with mild oozing of blood. There was no other pathology seen. He has done well overnight. He is tolerating diet. No nausea. No abdominal pain. He tells me he had an episode of palpitation yesterday and being kept in IMCU for one more night. Pulse 77 this morning. PHYSICAL EXAMINATION: GENERAL: Appears very comfortable. VITAL SIGNS: Pulse is 77, blood pressure is 118/55. CARDIOVASCULAR AND LUNGS: Within normal limits. ABDOMEN: Soft. No organomegaly. No tenderness. LABORATORY DATA: From this morning, hemoglobin 8.1 hematocrit 25.3, MCV 80.8, platelet count is 342,000. CLINICAL IMPRESSION: 1. Anemia. 2. Colon polyp. 3. Family history of colon cancer. 4. 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 RECOMMENDATIONS: 1. Iron supplement. 2. Pantoprazole 40 once a day. 3. Repeat colonoscopy in 3 years because of family history of colon cancer. Job ID: [id number]
[2019-02-19] MEDS: HumaLOG 300 UNITS/3 ML VIAL SC PRN ×3 (10:52→22:05)
[2019-02-19] MEDS ORDERED: Potassium Chloride 20 MEQ TAB PO SCH (12:00)
--- NOTE | 2019-02-19 12:20 | PRG ---
DATE OF SERVICE: 02/19/2019 Mr. Robertson is doing fine this morning. He did have EGD and colonoscopy yesterday with findings of a gastric ulcer that was "oozing," as well as diverticulosis. He is currently on PPI and iron replacement. He did have a run of supraventricular tachycardia last night and we are consulting Cardiology while ordering a TSH and echocardiogram. However, this morning, he is completely clinically stable and will be transferred to the regular floor. Job ID: [id number]
[2019-02-19] MEDS ORDERED: Magnesium 2 GM/50 ML 2 GM in Premix Bag 1 BAG IVPB SCH (13:00)
[2019-02-19] MEDS: CCU Electrolyte Replacement 1 EACH IVPB SCH (13:22)
[2019-02-19 16:35] LABS: Anion Gap 11 mmol/L (10-20); BUN (Urea Nitrogen) 5 mg/dL (8.4-25.7); Calc. Creatinine Clearance 164 mL/min (70-130); Calcium 8.4 mg/dL (7.8-10.44); Carbon Dioxide 21 mmol/L (22-29); Chloride 107 mmol/L (98-107); Estimated GFR-MDRD Greater than 90; Glucose 283 mg/dL (70-105); Potassium 4.2 mmol/L (3.5-5.1); Sodium 135 mmol/L (136-145)
[2019-02-19] MEDS: metFORMIN 500 MG TAB PO SCH (17:03)
[2019-02-19] MEDS: Ferrous Sulfate 325 MG TAB PO SCH (17:03)
[2019-02-19] MEDS: Ketorolac Tromethamine 30 MG/ML VIAL IVP SCH (17:59)
--- NOTE | 2019-02-19 21:56 | CON ---
DATE OF CONSULTATION: HISTORY OF PRESENT ILLNESS: The patient is a pleasant 58-year-old gentleman with no known previous cardiac history, who was admitted with a GI hemorrhage and was noted to have a rapid irregular heart rhythm. The patient was admitted with a GI hemorrhage and he underwent an endoscopy. He has been in the hospital for several days. He has been off his metoprolol. The patient had two episodes during the hospital of rapid palpitations. He denies any chest discomfort. He denies having any previous palpitations. PAST MEDICAL HISTORY: Significant for; 1. Diabetes mellitus. 2. Hypertension. PAST SURGICAL HISTORY: Gastric bypass surgery and hernia surgery. SOCIAL HISTORY: Nonsmoker. FAMILY HISTORY: No strong family history of heart disease. ALLERGIES: ALLERGIC TO IODINE. REVIEW OF SYSTEMS: Ten-point system otherwise unremarkable. PHYSICAL EXAMINATION: GENERAL: This is a well-developed gentleman, in no acute distress. VITAL SIGNS: Blood pressure 146/77. NECK: Showed no jugular venous distention. LUNGS: Clear to auscultation. HEART: Regular rate and rhythm. Normal S1 and S2. No murmurs. ABDOMEN: Distended. EXTREMITIES: Showed no edema. VASCULAR: Radial pulses 2+. LABORATORY RESULTS: Sodium 138, potassium 3.1, chloride 111, bicarbonate 21, BUN 4, creatinine 0.67, glucose 178. White blood cell count 3.8, hemoglobin 8.1, hematocrit 25.3, and his platelets were 342. His EKG revealed him to have normal sinus rhythm with a normal ECG. materials manager revealed atrial flutter with variable conduction. IMPRESSION: 1. New onset atrial flutter. 2. GI hemorrhage. 3. Diabetes mellitus. 4. Hypertension. This gentleman presented with a GI hemorrhage. 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 The patient had two brief episodes of atrial flutter. He had been off his Toprol. From a cardiac standpoint, he has a CHADS-VASc score of 2. With his recent GI hemorrhage, would avoid anticoagulation. We would continue to monitor the patient on telemetry. We will check the patient's echocardiogram. We will follow this patient with you through his hospitalization. Please call my office. Job ID: [id number]
[2019-02-20 05:10] LABS: Phosphorus 2.4 mg/dL (2.3-4.7)
[2019-02-20 05:13] LABS: Anion Gap 10 mmol/L (10-20); BUN (Urea Nitrogen) 4 mg/dL (8.4-25.7); Calc. Creatinine Clearance 181 mL/min (70-130); Calcium 8.1 mg/dL (7.8-10.44); Carbon Dioxide 22 mmol/L (22-29); Chloride 110 mmol/L (98-107); Estimated GFR-MDRD Greater than 90; Glucose 176 mg/dL (70-105); Magnesium 1.7 mg/dL (1.6-2.6); Potassium 3.3 mmol/L (3.5-5.1); Sodium 139 mmol/L (136-145)
[2019-02-20 05:23] LABS: Anisocytosis SLIGHT = 6-15 cells (100X) (0-5/hpf); Band 2 % (5-11); Eosinophils 2 % (0-10); Lymphocytes 33 % (21-51); MDiff Complete? YES; Mean Corpuscular HGB CONC 32.3 g/dL (32.0-36.0); Mean Corpuscular Hemoglobin 26.3 pg (27.0-31.0); Mean Corpuscular Volume 81.6 fL (78.0-98.0); Monocytes 15 % (0-10); Neutrophil 48 % (42-75); Platelet Count 296 thou/uL (130-400); Red Blood Cell (RBC) Count 3.05 mill/uL (4.70-6.10); White Blood Cell (WBC) Count 3.9 thou/uL (4.8-10.8)
--- NOTE | 2019-02-20 06:44 | PDOC.FM ---
- Subjective Subjective: NAEO. Patient reports that he is feeling well this AM. Denies any N/V/D or blood in stool. Denies any episodes of palpitations overnight. - Objective MAR Reviewed: Yes Vital Signs & Weight: Vital Signs (12 hours) Temp Pulse Resp BP Pulse Ox 02/20/19 03:29 97.9 F 75 16 131/64 99 02/19/19 19:41 98.2 F 73 18 130/64 100 Weight Admit Weight 111.1 kg Weight 110.813 kg Most Recent Monitor Data Heart Rate from ECG 77 NIBP 142/83 NIBP BP-Mean 102 Respiration from ECG 17 SpO2 99 I&O: 02/18/19 02/19/19 02/20/19 06:59 06:59 06:59 Intake Total 8742.8 6450 900 Output Total 1375 6450 2430 Balance 7367.8 0 -1530 Result Diagrams: 02/20/19 04:43 02/20/19 04:43 Phys Exam - Physical Examination Constitutional: NAD HEENT: moist MMs Neck: supple, full ROM Respiratory: no wheezing, no rales, no rhonchi, clear to auscultation bilateral Cardiovascular: RRR, no significant murmur Neurological: non-focal, moves all 4 limbs Psychiatric: normal affect, A&O x 3 Skin: no rash, normal turgor Dx/Plan (1) Diabetic ketoacidosis Code(s): E11.10 - TYPE 2 DIABETES MELLITUS WITH KETOACIDOSIS WITHOUT COMA Status: Acute (2) DMII (diabetes mellitus, type 2) Status: Acute (3) HTN (hypertension) Code(s): I10 - ESSENTIAL (PRIMARY) HYPERTENSION Status: Acute (4) Anxiety Code(s): F41.9 - ANXIETY DISORDER, UNSPECIFIED Status: Acute (5) Depression Code(s): F32.9 - MAJOR DEPRESSIVE DISORDER, SINGLE EPISODE, UNSPECIFIED Status : Acute (6) Hx of migraines Code(s): Z86.69 - PERSONAL HISTORY OF DIS OF THE NERVOUS SYS AND SENSE ORGANS Status: Acute (7) Hypokalemia Code(s): E87.6 - HYPOKALEMIA Status: Acute (8) Hypophosphatemia Code(s): E83.39 - OTHER DISORDERS OF PHOSPHORUS METABOLISM Status: Acute (9) Hypomagnesemia Code(s): E83.42 - HYPOMAGNESEMIA Status: Acute (10) Atrial flutter Code(s): I48.92 - UNSPECIFIED ATRIAL FLUTTER Status: Acute - Plan Plan: 58YOM with a PMH significant for poorly controlled DMII and HTN who presented to the ED with a CC of progressively worsening fatigue and SOB found to be severely anemic and in DKA. Acute blood loss anemia 2/2 bleeding GE junction ulcer: - Hgb of 6.3 on presentation but now stable at 8 s/p 3U PRBCs since admission. Source confirmed on EGD during which Han's mucosa & a GE ulcer were noted. - Will continue to monitor and transfuse PRN for Hgb levels <7. Will also continue PO Iron & consider an iron infusion to restore ferritin levels prior to discharge. - Will continue QD PPI and consider adding an additional agent such as sucralfate for mucosal protection to promote ulcer healing. DMII: - Will continue insulin regimen but will increase to 40U QD as patient still required 10U of mild SSI yesterday. Will continue ACHS accuchecks & metformin as well. New onset Atrial flutter: - Patient has episodes of atrial flutter the last 2 nights in the CCU, one of which required a small dose of metoprolol to convert to sinus. Had multiple recurrent episodes yesterday as well but was asymptomatic. - Cardiology, Dr. Reese, consulted. Appreciate recs. Echo showed NL Ef of 50- 55% and a NL sized left atrium. - Will continue home metoprolol & continue to monitor on telemetry. Hypokalemia: - K 3.3 this AM. - Will replace with 40mEq PO this AM and with lunch & recheck tomorrow AM. - Will continue to monitor & replace PRN. Hypomagesemia: - Mg 1.7 this AM. Will give 1g IV & continue to monitor & replace PRN. HTN: - Will continue home meds. Migraines: - Will continue home meds. Anxiety/depression: - Will continue home meds. MIAN, resolved: - Cr of 0.7 this AM. Possible UTI, ruled out: - Patient's UA significant for high ketones, BG, LE and 11-20 WBCs but Cx negative. Hypophosphatemia, resolved: - Phos level of 2.4 this AM. DKA, resolved: - BG level on presentation elevated at 424 with an AG of ~17 and elevated blood ketones. Likely 2/2 medication non-compliance as UA also + for LE and WBCs but Cx negative. - AG closed since 02/17 and patient now on regular SQ insulin w/ moderate SS. Dispo: Will continue to monitor on telemetry and await cards recs for arrhythmia. Otherwise, medically stable and clear for discharge with close follow-up with GI and PCP upon discharge. Abx: none IVFs: SL GI PPX: protonix DVT PPx: SCDs CODE STATUS: FULL CODE PCP: DEVEN Rodrigez
[2019-02-20] MEDS ORDERED: Ferrous Sulfate 325 MG TAB PO SCH (08:00)
--- NOTE | 2019-02-20 09:10 | CON ---
DATE OF CONSULTATION: 02/17/2019 REFERRING DOCTOR: Dr. Keny Melendrez, [facility] REASON FOR CONSULTATION: Symptomatic anemia. HISTORY OF PRESENT ILLNESS: Oswaldo Robertson is a 58-year-old male with fatigue, tiredness, lack of appetite, and weakness over the last couple of weeks. The symptoms probably steadily progressing. The patient was seen in the ER and was found to have anemia. Hemoglobin is 6.9. Anemia is normocytic. The patient tells me he has had no appetite and has had not anything to eat for the last probably for several days. The patient had no abdominal pain. No nausea, no vomiting. No history of dysphagia or odynophagia. His bowel movements are fairly regular. He because of lack of food intake. He denies history of any hematochezia, any dark tarry stool. Also no history of nosebleed, bleeding from the urine. Does have some bleeding from the gums off and on. The bleeding is mild. He has noted chronic acid reflux and has been on PPI off and on. The symptoms are actually mild. At times, he has noticed some difficulty swallowing solid food. The solid foods tend to stick to esophagus and he has to drink some water to make it go down. No painful swallowing. The patient used to live in [place] before he moved to [place] in March 2018. The patient tells me he has had anemia many years ago, but no recent CBC was done. There is no history of any weight loss. No history of fever or chills. At the present time, he is getting blood transfusion. He has no other symptoms of anemia. ALLERGIES: ALLERGY TO SHELLFISH. SOCIAL HISTORY: The patient does not smoke or drink alcohol. MEDICAL ILLNESSES: 1. Type 2 diabetes mellitus. 2. Migraine. 3. Depression. 4. Anxiety. 5. Hypertension. 6. History of colon polyp. PAST SURGICAL HISTORY: 1. Gastric bypass. 2. Hernia repair. 3. Colonoscopy/polypectomy 3 years ago. MEDICATIONS: List reviewed, which includes 1. Insulin. 2. Metoprolol. 3. Quetiapine fumarate. 4. Sertraline. 5. Topiramate. FAMILY HISTORY: Father had colon cancer. Sister, CVA. Mother and sisters, diabetes. REVIEW OF SYSTEMS: A 10-point system review; SOCIAL WORK CASE MANAGER: No chronic headache. No syncope. No TIA. No seizure disorder. No syncope. HEAD: No chronic headache. No TIA. EENT: No diplopia. No impaired vision. No bleeding from the nose. No hearing impairment. NECK: No stiffness or pain. LUNGS: No chronic coughing. No hemoptysis. No dyspnea. CARDIOVASCULAR: No chest pain. No palpitation. No dyspnea, orthopnea, or PND. GI: As in history of present illness. : No dysuria or hematuria. MUSCULOSKELETAL: Nonrelevant. NEUROENDOCRINE: Nonrelevant. PSYCHIATRIC: History of depression and anxiety. PHYSICAL EXAMINATION: GENERAL: The patient is awake, alert, and communicative. He is in no distress. VITAL SIGNS: Pulse is 77, blood pressure 130/70. HEENT: Conjunctivae clear. NECK: Supple. No adenitis or thyromegaly noted. CARDIOVASCULAR: First and second heart sounds heard. LUNGS: Clear to auscultation. ABDOMEN: Soft. No organomegaly. No tenderness. No masses. He has a midline scar over the upper abdomen. EXTREMITIES: Reveal no edema. CENTRAL NERVOUS SYSTEM: Grossly within normal limits. LABORATORY DATA: On admission showed WBC 5500, hemoglobin is 6.3, hematocrit 28.6, MCV 79.6, platelet count is 424,000, polymorphs 62, lymphocytes 24, monocytes 12. Serum chemistries; sodium is 137, potassium 3.5, chloride 114, bicarb is 12, BUN is 13, creatinine is 1.07, glucose 130, calcium 8.6, bilirubin is 1.5. CLINICAL IMPRESSION: 1. A 58-year-old male with anemia, which is symptomatic. The patient has no history of blood loss. No hematochezia, melena, nosebleed, or blood in the urine. The patient has chronic acid reflux and does complain of dysphagia to solid food off and on. 2. Type 2 diabetes mellitus. 3. Hypertension. 4. Migraine. 5. Depression and anxiety. 6. History of colon polyp. 7. Status post gastric bypass, 2000. 8. History of hernia repair. PLAN: 1. Transfuse. 2. Clear liquid diet. 3. Prep the patient for EGD and colonoscopy tomorrow. Job ID: [id number]
[2019-02-20] MEDS: Ferrous Sulfate 325 MG TAB PO SCH ×2 (09:27→18:00)
[2019-02-20] MEDS: Potassium Chloride 20 MEQ TAB PO SCH ×2 (09:27→18:00)
[2019-02-20] MEDS: metFORMIN 500 MG TAB PO SCH ×2 (09:27→18:00)
[2019-02-20] MEDS: Topiramate 25 MG TAB PO SCH ×2 (09:28→21:24)
[2019-02-20] MEDS: Insulin Glargine 40 UNITS in Pre-Filled Syringe 1 EACH SC SCH (09:28)
[2019-02-20 09:42] LABS: Base Excess-Venous -19.5 mmol/L (-2.0 to 3.0); CO2 Tension (PvCO2) 14.1 mmHg (40.0-50.0); Chloride 112 mmol/L (98-107); Hemoglobin - Calc 7.6 g/dL (14.0-18.0); Potassium 4.5 mmol/L (3.5-5.1); Sodium 135 mmol/L (138-145); T. Carbon Dioxide 6.5 mmol/L (22.0-28.0); vO2 Saturation-calc 98.6 % (60.0-85.0)
--- NOTE | 2019-02-20 11:27 | PRG ---
DATE OF SERVICE: 02/20/2019 Mr. Robertson is looking and feeling well. We are awaiting Cardiology input for evaluation of his atrial flutter. His hemoglobin is now 8 with hematocrit of 24.9. Given that the atrial arrhythmias may in part be due to his anemia, would be reasonable to give him one dose of IV iron to boost his treatment regimen. Otherwise, we will await the input of Cardiology and likely discharge him after their consultation. Job ID: [id number]
[2019-02-20] MEDS ORDERED: Flecainide 50 MG TAB PO SCH (12:00)
[2019-02-20] MEDS ORDERED: Iron, Sodium Ferric Gluconate 125 MG in Sodium Chloride 0.9% 100 ML IVPB SCH (12:00)
[2019-02-20] MEDS: HumaLOG 300 UNITS/3 ML VIAL SC PRN ×3 (12:42→21:13)
--- NOTE | 2019-02-20 14:28 | OP ---
DATE OF PROCEDURE: 02/18/2019 PROCEDURE PERFORMED: Esophagogastroduodenoscopy. PREOPERATIVE DIAGNOSES: 1. Anemia. 2. History of chronic acid reflux. POSTOPERATIVE DIAGNOSES: 1. Previous gastric bypass surgery. 2. Short-segment Han mucosa. 3. Ulcer at gastroesophageal junction with mild oozing of blood, but after irrigating with water, the bleeding actually stopped. No therapeutic intervention done. DESCRIPTION OF PROCEDURE: The patient was placed on his left lateral position and was given sedation by Anesthesia Department. A Pentax video gastroscope under direct vision was passed down the oropharynx past the upper esophageal sphincter into the stomach. The patient had a short segment of Han mucosa. At the GE junction, the patient found an ulcer with some mild oozing of blood. After this was washed out, there was no bleeding seen. The patient has had previous gastric bypass. The scope was advanced into the small bowel . The small bowel mucosa appeared normal. No active bleeding seen except for mild oozing, which was noted initially at the GE junction. However, at the completion of procedure, no bleeding seen. There was no other pathology seen. RECOMMENDATIONS: 1. Diabetic diet. 2. Follow up H and H. 3. Symptomatic treatment. Job ID: [id number]
[2019-02-20 15:08] LABS: Folate,Hemolysate 368.3 ng/mL (Not Estab.); Hematocrit 24.4 % (37.5-51.0); RBC Folate Test Component 1509 ng/mL (>498)
[2019-02-20] MEDS: Ketorolac Tromethamine 30 MG/ML VIAL IVP SCH (18:01)
[2019-02-20] MEDS: Flecainide 50 MG TAB PO SCH (21:14)
[2019-02-21 05:48] LABS: Anion Gap 10 mmol/L (10-20); BUN (Urea Nitrogen) 5 mg/dL (8.4-25.7); Calc. Creatinine Clearance 168 mL/min (70-130); Calcium 8.5 mg/dL (7.8-10.44); Carbon Dioxide 22 mmol/L (22-29); Chloride 111 mmol/L (98-107); Estimated GFR-MDRD Greater than 90; Glucose 173 mg/dL (70-105); Magnesium 1.9 mg/dL (1.6-2.6); Potassium 3.8 mmol/L (3.5-5.1); Sodium 139 mmol/L (136-145)
[2019-02-21 06:10] LABS: Anisocytosis MODERATE=16-30 cells (100X) (0-5/hpf); Band 3 % (5-11); Eosinophils 2 % (0-10); Lymphocytes 31 % (21-51); MDiff Complete? YES; Mean Corpuscular HGB CONC 31.4 g/dL (32.0-36.0); Mean Corpuscular Volume 82.9 fL (78.0-98.0); Mean Platelet Volume 9.3 fL (7.4-10.4); Monocytes 10 % (0-10); Neutrophil 54 % (42-75); Platelet Count 311 thou/uL (130-400); Platelet Morphology Comment Appears Adequate; RBC Distribution Width 21.6 % (11.5-14.5); Red Blood Cell (RBC) Count 3.06 mill/uL (4.70-6.10); White Blood Cell (WBC) Count 4.8 thou/uL (4.8-10.8)
--- NOTE | 2019-02-21 07:28 | PDOC.FM ---
- Subjective Subjective: Patient reports that he feels well this AM. Denies any N/V but does reports some loose stools yesterday. Otherwise no palpitations, chest pain, or SOB. - Objective MAR Reviewed: Yes Vital Signs & Weight: Vital Signs (12 hours) Temp Pulse Resp BP Pulse Ox 02/21/19 07:08 98.2 F 72 16 134/76 95 02/21/19 03:30 97.7 F 64 19 108/57 L 96 02/20/19 23:46 72 123/73 02/20/19 21:11 98.2 F 65 18 123/74 99 Weight Admit Weight 111.1 kg Weight 110.813 kg Most Recent Monitor Data Heart Rate from ECG 77 NIBP 142/83 NIBP BP-Mean 102 Respiration from ECG 17 SpO2 99 I&O: 02/20/19 02/21/19 02/22/19 06:59 06:59 06:59 Intake Total 900 2040 Output Total 2430 2350 Balance -1530 -310 Result Diagrams: 02/21/19 04:53 02/21/19 04:53 Phys Exam - Physical Examination Constitutional: NAD HEENT: moist MMs Neck: supple, full ROM Respiratory: no wheezing, no rales, no rhonchi, clear to auscultation bilateral Cardiovascular: RRR, no significant murmur Gastrointestinal: soft, non-tender, no distention, positive bowel sounds Neurological: non-focal, moves all 4 limbs Psychiatric: normal affect, A&O x 3 Skin: no rash, normal turgor Dx/Plan (1) Diabetic ketoacidosis Code(s): E11.10 - TYPE 2 DIABETES MELLITUS WITH KETOACIDOSIS WITHOUT COMA Status: Resolved (2) DMII (diabetes mellitus, type 2) Status: Chronic Qualifiers: Diabetes mellitus intermission coordinator insulin use: with intermission coordinator use (3) HTN (hypertension) Code(s): I10 - ESSENTIAL (PRIMARY) HYPERTENSION Status: Chronic (4) Anxiety Code(s): F41.9 - ANXIETY DISORDER, UNSPECIFIED Status: Chronic (5) Depression Code(s): F32.9 - MAJOR DEPRESSIVE DISORDER, SINGLE EPISODE, UNSPECIFIED Status : Chronic (6) Hx of migraines Code(s): Z86.69 - PERSONAL HISTORY OF DIS OF THE NERVOUS SYS AND SENSE ORGANS Status: Chronic (7) Hypokalemia Code(s): E87.6 - HYPOKALEMIA Status: Resolved (8) Hypophosphatemia Code(s): E83.39 - OTHER DISORDERS OF PHOSPHORUS METABOLISM Status: Resolved (9) Hypomagnesemia Code(s): E83.42 - HYPOMAGNESEMIA Status: Resolved (10) Atrial flutter Code(s): I48.92 - UNSPECIFIED ATRIAL FLUTTER Status: Acute - Plan Plan: 58YOM with a PMH significant for poorly controlled DMII and HTN who presented to the ED with a CC of progressively worsening fatigue and SOB found to be severely anemic and in DKA. Acute blood loss anemia 2/2 bleeding GE junction ulcer: - Hgb of 6.3 on presentation but now stable at 8 s/p 3U PRBCs since admission. Source confirmed on EGD during which Han's mucosa & a GE ulcer were noted. - Will continue to monitor and transfuse PRN for Hgb levels <7. Will also continue PO Iron Q2days. - Will continue QD PPI & instruct to f/u w/ GI within 1 month of d/c. DMII: - Will continue [facility] insulin regimen & give patient instructions for home titration of insulin up until he can be seen in clinic for hospital f/u appt. - Will continue ACHS accuchecks & metformin as well. New onset Atrial flutter: - Patient had no episodes of atrial flutter overnight after being started on DAVION flecainide in addition to QD metoprolol but cardiology. Appreciate recs. - EKG pending for this AM per cards recs. - Cleared for d/c on PO flecainide and metoprolol by cards with close outpatient follow-up. Hypokalemia, resolved: - K 3.8 this AM. - Will replace with 40mEq PO this AM and with lunch & recheck tomorrow AM. - Will continue to monitor & replace PRN. Hypomagesemia, resolved: - Mg 1.9 this AM. Will continue to monitor & replace PRN. HTN: - Will continue home meds. Migraines: - Will continue home meds. Anxiety/depression: - Will continue home meds. MIAN, resolved: - Cr of 0.7 this AM with an eGFR >90. Possible UTI, ruled out: - Patient's UA significant for high ketones, BG, LE and 11-20 WBCs but Cx negative. Hypophosphatemia, resolved: - Phos level of 2.4 this AM. DKA, resolved: - BG level on presentation elevated at 424 with an AG of ~17 and elevated blood ketones. Likely 2/2 medication non-compliance as UA also + for LE and WBCs but Cx negative. - AG closed since 02/17 and patient now on regular SQ insulin w/ moderate SS. Dispo: Medically stable and clear for discharge with close follow-up with GI, cards, and PCP upon discharge. Abx: none IVFs: SL GI PPX: protonix DVT PPx: SCDs CODE STATUS: FULL CODE PCP: DEVEN Rodrigez
[2019-02-21] MEDS: metFORMIN 500 MG TAB PO SCH (09:14)
[2019-02-21] MEDS: Insulin Glargine 40 UNITS in Pre-Filled Syringe 1 EACH SC SCH (09:15)
[2019-02-21] MEDS: Ferrous Sulfate 325 MG TAB PO SCH (09:15)
[2019-02-21] MEDS: Topiramate 25 MG TAB PO SCH (09:15)
[2019-02-21] MEDS: Flecainide 50 MG TAB PO SCH (09:15)
[2019-02-21] MEDS: HumaLOG 300 UNITS/3 ML VIAL SC PRN ×2 (09:16→11:35)
[2019-02-21 11:31] VITALS: BMI 35.0
[2019-02-21 11:34] VITALS: BP 134/77; TEMP 97.8
--- NOTE | 2019-02-21 12:20 | PRG ---
DATE OF SERVICE: 02/21/2019 Mr. Robertson continues to look and feel fine. He was started on flecainide yesterday for his atrial flutter and has remained stable throughout the night. He is therefore ready for discharge today to follow up with his anemia and atrial flutter. His echocardiogram was normal. His discharge hemoglobin is 8 with hematocrit of 25.4. As stated, this will need to be followed up as an outpatient. Job ID: [id number]
--- NOTE | 2019-02-22 03:16 | DIS ---
DATE OF ADMISSION: 02/17/2019 DATE OF DISCHARGE: 02/21/2019 RESIDENT: Beatriz Sy MD ADMITTING ATTENDING: Nghia Fried MD DISCHARGE ATTENDING: Nghia Fried MD CONSULTS: 1. Gastroenterology, Dr. Cruz Franco. 2. Cardiology, Dr. Morales Reese. PROCEDURES: 1. EGD and colonoscopy on 02/18/2019, notable for internal hemorrhoids and scattered diverticula in the sigmoid colon as well as short-segment Han's mucosa and an ulcer at the GE junction with mild oozing of blood requiring no therapeutic intervention. 2. Echocardiogram on 02/19/2019, which noted an EF estimated at 50% to 55% with a normal-size left ventricle. PRIMARY DIAGNOSES: 1. Diabetic ketoacidosis secondary to medication noncompliance. 2. Acute blood loss anemia secondary to an ulcer at the gastroesophageal junction. 3. New onset paroxysmal atrial flutter. 4. Acute kidney injury secondary to decreased p.o. intake. SECONDARY DIAGNOSES: 1. Insulin-dependent type 2 diabetes mellitus. 2. Hypertension. 3. History of migraines. 4. Anxiety. 5. Depression. DISCHARGE MEDICATIONS: 1. Sertraline 100 mg p.o. at bedtime. 2. Topiramate 50 mg p.o. b.i.d. 3. Quetiapine 50 mg p.o. at bedtime. 4. Metoprolol succinate 100 mg p.o. daily. 5. Tresiba 40 units subcu daily. 6. Metformin 500 mg p.o. b.i.d. with meals. 7. Flecainide 50 mg p.o. q.12 hours. 8. Protonix 40 mg p.o. daily. 9. Ferrous sulfate 325 mg p.o. b.i.d. every other day. DISCONTINUED MEDICATIONS: None. HOSPITAL COURSE: The patient is a 58-year-old gentleman with a past medical history significant for insulin-dependent type 2 diabetes mellitus and hypertension, who presented to the emergency department with a chief complaint of progressively worsening weakness and fatigue. Per the patient, he was seen and evaluated in clinic approximately 2 weeks ago with similar complaints and per chart review, his hemoglobin was actually significantly low at 5.5 at that time. However, these lab results were never reported to the patient and he continued to decline. He reported that approximately 3 days prior to presentation, he had decreased p.o. intake, and stopped taking his home medications. On presentation to the emergency department, the patient was noted to have vitals within normal limits, but initial lab work including a CBC, CMP, and UA were significant for hemoglobin of 6.7 and metabolic acidosis with a sodium of 134, potassium 4.3, chloride 109, carbon dioxide or HCO3 of 8, BUN of 16, creatinine of 1.54, and blood glucose level of 424. His urinalysis was positive for ketones and glucose, and his beta hydroxybutyrate level was 6.81. A VBG was also obtained which was significant for metabolic acidosis with a pH of 7.238 and PCO2 of 14. The patient was therefore determined to be in a state of diabetic ketoacidosis, was given 1 L of normal saline and started on an insulin drip prior to being transferred to the ICU. The patient was observed overnight closely in the CCU and continued on the DKA protocol and kept on insulin drip overnight. Regarding his DKA, the following morning, the patient was still requiring the insulin drip, but was eventually titrated off this and was able to resume his regularly scheduled SQ insulin dosing with sliding scale to cover for persistently elevated sugars once he was tolerating a clear liquid diet well. His blood sugars were monitored closely over the course of his hospitalization and his daily insulin regimen was increased from 35 to 40 units daily and he was started on p.o. metformin. After a mild improvement in glycemic control, the patient was cleared for discharge with instructions to titrate his home insulin by 3 units every 3 days for a.m. fasting blood glucose levels greater than 140. Regarding the patient's symptomatic anemia, he required a total of 3U of PRBCs during his stay before his Hgb stabilized at ~8.0. Gastroenterology, Dr. Franco was consulted to come and evaluate the patient on the date of admission. The following morning, he came and evaluated the patient and recommended EGD and colonoscopy the following day to investigate possible GI etiologies as the source of the patient's anemia. The patient's EGD and colonoscopy were notable for mildly oozing ulcer at the gastroesophageal junction that did not require any therapeutic intervention. However, the patient was continued on a PPI for the remainder of his hospital stay and was started on p.o. iron. He also received 1 iron transfusion the date before d/ c. It was recommended that he follow up with Dr. Franco within one month of discharge and to continue on p.o. iron and Protonix for this duration of time as well. Regarding the patient's acute kidney injury, this resolved after aggressive IV fluid resuscitation in accordance with the DKA protocol. Regarding the patient's atrial flutter, it was noted on nights 2 and 3 of his hospitalization that the patient was in and out of atrial flutter. On night #3 he had to be given a one time 50 mg dose of metoprolol to convert back to sinus. Therefore, the patient was transferred from the CCU to telemetry for close cardiac monitoring and Cardiology, Dr. Morales Reese, was consulted to come and evaluate the patient. On day #4 of hospitalization, Dr. Reese started him on 50 of flecainide b.i.d. in addition to his home metoprolol dosing and wanted to monitor him closely overnight and get an EKG the following morning. After the addition of flecainide, the patient had no further runs of atrial flutter and Cardiology therefore cleared the patient for discharge home with close followup within 3 weeks of discharge on p.o. flecainide and metoprolol. DISPOSITION: Stable. DISCHARGE INSTRUCTIONS: 1. Location: Home. 2. Diet: Heart healthy, consistent carb diet. 3. Activity: As tolerated. No restrictions. 4. Followup: The patient was instructed to follow up with his primary care physician or [facility] within 1 week of discharge. He was also instructed to follow up with Dr. Morales Reese within [address] Cruz Franco within 1 month of discharge. Job ID: [id number] [facility]
--- NOTE | 2019-02-22 17:06 | EKG ---
Test Reason : Blood Pressure : / mmHG Vent. Rate : 069 BPM Atrial Rate : 069 BPM P-R Int : 158 ms QRS Dur : 090 ms QT Int : 402 ms P-R-T Axes : 042 -19 003 degrees QTc Int : 430 ms Normal sinus rhythm Normal ECG Confirmed by DELMY VILLEDA ([id number]) on 02/22/2019 5:06:04 PM Referred By: RONAL Confirmed By:DELMY VILLEDA
== END 2019-02-21 12:25 | disposition home or self-care (01) | DRG 377 ==
LOC: ERS 08:01 → IMCU/EMU 09:39 → 2NO 02-19 17:58
PROVIDERS: ADMIT Family Medicine; ATTEND Family Medicine
PROC: 30233N1 Transfusion of Nonautologous Red Blood Cells into Peripheral Vein, Percutaneous Approach (ICD-10-PCS; 2019-02-17)
PROC: 0DJD8ZZ Inspection of Lower Intestinal Tract, Via Natural or Artificial Opening Endoscopic (ICD-10-PCS; principal; 2019-02-18)
PROC: 0DJ08ZZ Inspection of Upper Intestinal Tract, Via Natural or Artificial Opening Endoscopic (ICD-10-PCS; 2019-02-18)
DX: K25.4 Chronic or unspecified gastric ulcer with hemorrhage (principal); E11.10 Type 2 diabetes mellitus with ketoacidosis without coma; N17.9 Acute kidney failure, unspecified; I48.92 Unspecified atrial flutter; D62 Acute posthemorrhagic anemia; K57.31 Diverticulosis of large intestine without perforation or abscess with bleeding; G43.909 Migraine, unspecified, not intractable, without status migrainosus; F32.9 Major depressive disorder, single episode, unspecified; F41.9 Anxiety disorder, unspecified; I10 Essential (primary) hypertension; K21.9 Gastro-esophageal reflux disease without esophagitis; E87.6 Hypokalemia; E83.42 Hypomagnesemia; D50.9 Iron deficiency anemia, unspecified; K64.8 Other hemorrhoids; K22.70 Barrett's esophagus without dysplasia; Z91.14 Patient's other noncompliance with medication regimen; Z91.041 Radiographic dye allergy status; Z91.013 Allergy to seafood; Z79.4 Long term (current) use of insulin; Z79.899 Other long term (current) drug therapy
CPT/HCPCS: 36415; 36416; 36430; 80048; 80053; 81003; 81015; 82010; 82330; 82607; 82728; 82747; 82803; 83540; 83550; 83605; 83735; 83930; 84100; 84443; 84484; 85025; 85060; 86850; 86900; 86901; 87086; 87338; 93005; 93010; 93306; 96361; 96365; 96366; 96375; C9113; J1815; J1885; J2001; J2405; J2704; J2916; J3475; J3480; J3490; J7050; P9016

== ENCOUNTER 2019-11-07 11:50 | Inpatient (IN) | payer MEDICARE ==
[~2019-11-07 11:50] MED LIST: EPHEDRINE 25 MG/5 ML SYRINGE ONE; Glycopyrrolate 0.2 MG/ML 5 ML SYRINGE ONE; Ketorolac Tromethamine 30 MG/ML VIAL ONE; Lidocaine 1% PF 5 ML VIAL ONE; Ondansetron PF 4 MG/2 ML Vial ONE; PROPOFOL 200 MG/20 ML VIAL ONE; Rocuronium Bromide 10 MG/ML (10ML VIAL) ONE
[2019-11-07 12:16] LABS: #Basophils 0.1 thou/uL (0.0-0.2); #Eosinphils 0.2 thou/uL (0.0-0.7); #Lymphocytes 1.4 thou/uL (1.20-3.40); #Monocytes 0.5 thou/uL (0.11-0.59); #Neutrophils 3.2 thou/uL (1.40-6.50); %Basophils 2.1 % (0.0-1.0); %Eosinophils 3.4 % (0.0-10.0); %Lymphocytes 26.2 % (21.0-51.0); %Monocytes 8.9 % (0.0-10.0); %Neutrophils 59.4 % (42.0-75.0); Hemoglobin 8.4 g/dL (14.0-18.0); Mean Corpuscular HGB CONC 32.8 g/dL (32.0-36.0); Mean Corpuscular Hemoglobin 29.1 pg (27.0-31.0); Mean Corpuscular Volume 88.8 fL (78.0-98.0); Mean Platelet Volume 7.3 fL (7.4-10.4); Platelet Count 604 thou/uL (130-400); RBC Distribution Width 15.7 % (11.5-14.5); Red Blood Cell (RBC) Count 2.88 mill/uL (4.70-6.10); White Blood Cell (WBC) Count 5.4 thou/uL (4.8-10.8)
--- NOTE | 2019-11-07 12:26 | RAD ---
PORTABLE CHEST 1 VIEW: Date: 11/07/2019 Time: 1214 hours HISTORY: Chest pain. FINDINGS: There is elevation of the right hemidiaphragm. The heart size is normal. No lobar consolidation, pneu mothoraces, or pleural effusions are seen. IMPRESSION: No radiographic evidence of acute cardiopulmonary process. POS: [facility]
[2019-11-07 12:29] LABS: ALT (SGPT) 804 U/L (8-55); AST (SGOT) 1477 U/L (5-34); Alkaline Phosphatase 369 U/L (40-110); Anion Gap 14 mmol/L (10-20); BUN (Urea Nitrogen) 16 mg/dL (8.4-25.7); Bilirubin, Total 1.3 mg/dL (0.2-1.2); CK (CPK) 86 U/L (30-200); Calc. Creatinine Clearance 0 mL/min (70-130); Calcium 9.3 mg/dL (7.8-10.44); Carbon Dioxide 21 mmol/L (22-29); Chloride 106 mmol/L (98-107); Estimated GFR-MDRD 86; Globulin 3.1 g/dL (2.4-3.5); Glucose 120 mg/dL (70-105); Lipase 25 U/L (8-78); Potassium 4.8 mmol/L (3.5-5.1); Protein, Total 7.1 g/dL (6.0-8.3); Sodium 136 mmol/L (136-145)
--- NOTE | 2019-11-07 13:13 | ULT ---
EXAM: US Gallbladder RUQ CLINICAL HISTORY: Right upper quadrant pain, radiating to the back. COMPARISON: None. FINDINGS: Pancreas: Obscured by bowel gas Liver:Heterogeneous parenchymal echotexture which may be due to hepatic steatosis or hepatocellular d isease. Limited evaluation for hepatic masses and intrahepatic biliary dilatation. Right hepatic lobe: 18.2 cm Gallbladder: No sonographic evidence of cholelithiasis, gallbladder wall thickening or pericholecysti c fluid. Mcneil's sign:Negative Portal Vein: Patent. Appropriate directional flow Bile ducts: Common bile duct diameter 0.6 cm Right kidney: No hydronephrosis. Right kidney measures 10.4 cm in length. IMPRESSION: 1. No sonographic evidence of cholelithiasis or cholecystitis. 2. Heterogeneous echotexture of the hepatic parenchyma may be due to hepatic steatosis or hepatocellu lar disease. Additional imaging if there is concern for hepatic masses.
[2019-11-07] MEDS ORDERED: methylPREDNISolone Sod Succ/PF 125 MG/2 ML VIAL ONE (13:43)
[2019-11-07] MEDS ORDERED: diphenhydrAMINE 50 MG/ML VIAL ONE (13:43)
[2019-11-07] MEDS ORDERED: Famotidine/PF 20 mg/2ml Vial ONE (13:43)
--- NOTE | 2019-11-07 14:55 | CT ---
CT ANGIOGRAM CHEST WITH IV CONTRAST AND 3D IMAGING CT ARTERIOGRAM ABDOMEN WITH IV CONTRAST AND 3D IMAGING: HISTORY: Chest and abdomen pain with radiation to back. FINDINGS: There is good contrast opacification of the aorta and pulmonary arteries. Bovine origin of the great vessels at the aortic arch. No filling defects or dissection. Visceral artery origins of the abdomen are patent. Tiny nonspecific subpleural nodule at the right anterior lung base. Postoperative changes of the anterior abdominal wall. Subtle inflammatory stranding in the right upper quadrant central fat around the gastric antrum and d uodenal bulb. An oval 1.3 cm pocket of gas lies immediately superior and lateral to the expected location of the duodenal bulb. This is in the area of greatest inflammation. Subtle inflamed appearan ce of the common bile duct is likely related to the adjacent inflammation. Gallbladder not visualized and may be surgically absent given the postoperative changes of anterior abdominal wall. T here are also postoperative changes of the stomach and small bowel apparent. Reactive appearing lymph nodes within the central mesentery measure up to 1.7 cm greatest diameter. IMPRESSION : 1. No acute vascular abnormalities are demonstrated. 2. Right upper quadrant inflammation surrounding the duodenum and gastric antrum. Evidence of duoden al bulb perforation. Extraluminal gas is contained to a small pocket. 3. Other incidental-type findings as detailed above. Findings were called to Dr. Tripathi in the emergency department at 1440 hours. Code CR. Transcribed Date/Time: 11/07/2019 3:16 PM
[2019-11-07] MEDS ORDERED: Pantoprazole 40 MG VIAL IVP SCH (15:00)
[2019-11-07] MEDS ORDERED: Pantoprazole 80 MG in Sodium Chloride 0.9% 100 ML IVPB SCH (15:00)
[2019-11-07] MEDS ORDERED: Pantoprazole 40 MG VIAL ONE (15:30)
[2019-11-07] MEDS ORDERED: Fentanyl 100 MCG/2 ML VIAL ONE ×2 (16:58→18:56)
[2019-11-07] MEDS ORDERED: HYDROmorphone 0.5 MG/0.5 ML SYRINGE ONE (16:58)
[2019-11-07] MEDS ORDERED: cefOXitin Sodium/Dextrose,Iso 2 GM in Premix Bag 1 BAG IVPB SCH (17:00)
[2019-11-07] MEDS ORDERED: cefOXitin 2 GM in Sodium Chloride 0.9% 100 ML IVPB SCH ×2 (17:00→20:00)
[2019-11-07] MEDS ORDERED: Promethazine HCl 25 MG/ML VIAL SLOW IVP PRN (18:51)
[2019-11-07] MEDS ORDERED: PACU-Morphine 4MG/ML VIAL SLOW IVP PRN (18:51)
[2019-11-07] MEDS ORDERED: Promethazine HCl 25 MG/ML VIAL IM PRN ×3 (18:51→19:09)
[2019-11-07] MEDS ORDERED: HYDROmorphone 2 MG/ML VIAL SLOW IVP PRN (18:51)
[2019-11-07] MEDS ORDERED: Ondansetron HCl/PF 4 MG/2 ML Vial IVP PRN (18:51)
[2019-11-07] MEDS ORDERED: hydrALAZINE 20 MG/ML VIAL SLOW IVP PRN (18:59)
[2019-11-07] MEDS ORDERED: Ondansetron PF 4 MG/2 ML Vial IVP PRN ×2 (18:59→19:09)
--- NOTE | 2019-11-07 19:02 | HP ---
CHIEF COMPLAINT: Abdominal and back pain. HISTORY OF PRESENT ILLNESS: This is a 59-year-old male, who has a history of chronic anemia. He presents with a history of more severe epigastric pain radiating straight to his back, described as sharp, 6/10. Pain was not described as so severe per him, but he knew that back pain could be a sign of "stroke and stroke," so he came to the emergency room for further evaluation. He was surprised when his CT angio showed evidence of perforated duodenal ulcer. He notes chronic abdominal epigastric pain, history of anemia since last summer. He underwent upper and lower endoscopy by Dr. Franco, where it was revealed that he did not have any obvious source of the bleeding. Of note, the patient had previous gastric bypass in 1999 by a physician in [place]. PAST MEDICAL HISTORY: Type 2 diabetes, depression, migraines, anxiety, hypertension, and colon polyp. PAST SURGICAL HISTORY: Gastric bypass, incisional hernia repair, and colonoscopy. MEDICATIONS: At home; 1. Metoprolol. 2. Quetiapine. 3. Sertraline. 4. Topiramate. 5. Insulin. SOCIAL HISTORY: No smoking, alcohol, or other drugs. ALLERGIES: SHELLFISH AND INSULIN. REVIEW OF SYSTEMS: A 10 system review of systems is otherwise negative as described above. PHYSICAL EXAMINATION: VITAL SIGNS: His pulse is 83. His blood pressure is 105/67. HEENT: Sclerae are anicteric. Oropharynx clear. NECK: No lymphadenopathy. CHEST: Clear. HEART: Regular rate. ABDOMEN: Soft, tender in the right upper quadrant to deep palpation without guarding or rebound. No abdominal or inguinal hernias. EXTREMITIES: No ischemia or edema to extremities. LABORATORY DATA: White cell count is 5, hemoglobin is 8.4, and platelet count is 604, normal differential. Sodium is 136, potassium is 4.8, creatinine 0.90, bilirubin 1.3, AST is 1477, ALT is 807, alkaline phosphatase 369, and lipase normal. CT scan as above. ASSESSMENT: Perforated duodenal ulcer. PLAN: Exploratory laparotomy, likely patch repair versus resection of this area. Risks, benefits, and alternatives were discussed. He gives consent. We will do this today. Job ID: [id number]
[2019-11-07] MEDS ORDERED: fentaNYL Citrate/PF 2,000 MCG in Sodium Chloride 0.9% 60 ML IV PRN (19:09)
[2019-11-07] MEDS ORDERED: diphenhydrAMINE 50 MG/ML VIAL IVP PRN (19:09)
[2019-11-07] MEDS ORDERED: diphenhydrAMINE 25 MG CAP PO PRN (19:09)
[2019-11-07] MEDS ORDERED: diphenhydrAMINE 50 MG/ML VIAL IM PRN (19:09)
[2019-11-07] MEDS ORDERED: Zolpidem Tartrate 5 MG TAB PO PRN (19:09)
[2019-11-07] MEDS ORDERED: Naloxone HCl 0.4 mg/ml Vial IV PRN (19:09)
[2019-11-07] MEDS ORDERED: Communication Order-Pharmacy FS SCH (19:15)
[2019-11-07] MEDS: Sodium Chloride 0.9% 1,000 ML IV SCH (21:46)
[2019-11-07 22:02] VITALS: BMI 33.7
[2019-11-08] MEDS: cefOXitin Sodium/Dextrose,Iso 2 GM in Premix Bag 1 BAG IVPB SCH ×2 (01:06→08:46)
[2019-11-08] MEDS: HumaLOG 300 UNITS/3 ML VIAL SC PRN ×3 (01:06→18:04)
[2019-11-08] MEDS ORDERED: cefOXitin 2 GM in Sodium Chloride 0.9% 100 ML IVPB SCH (02:00)
[2019-11-08] MEDS: Sodium Chloride 0.9% 1,000 ML IV SCH ×3 (04:32→23:41)
[2019-11-08 05:12] LABS: #Monocytes 0.8 thou/uL (0.11-0.59); #Neutrophils 6.8 thou/uL (1.40-6.50); %Basophils 0.3 % (0.0-1.0); %Eosinophils 0.1 % (0.0-10.0); %Lymphocytes 11.3 % (21.0-51.0); %Monocytes 9.4 % (0.0-10.0); %Neutrophils 78.9 % (42.0-75.0); Hemoglobin 7.4 g/dL (14.0-18.0); Mean Corpuscular HGB CONC 30.6 g/dL (32.0-36.0); Mean Corpuscular Hemoglobin 27.6 pg (27.0-31.0); Mean Corpuscular Volume 90.1 fL (78.0-98.0); Mean Platelet Volume 7.3 fL (7.4-10.4); Platelet Count 493 thou/uL (130-400); RBC Distribution Width 15.9 % (11.5-14.5); Red Blood Cell (RBC) Count 2.67 mill/uL (4.70-6.10); White Blood Cell (WBC) Count 8.6 thou/uL (4.8-10.8)
[2019-11-08 05:19] LABS: Anion Gap 12 mmol/L (10-20); BUN (Urea Nitrogen) 18 mg/dL (8.4-25.7); Calc. Creatinine Clearance 132 mL/min (70-130); Calcium 8.6 mg/dL (7.8-10.44); Carbon Dioxide 21 mmol/L (22-29); Chloride 109 mmol/L (98-107); Estimated GFR-MDRD 86; Glucose 123 mg/dL (70-105); Potassium 4.8 mmol/L (3.5-5.1); Sodium 137 mmol/L (136-145)
[2019-11-08] MEDS: Pantoprazole 40 MG VIAL IVP SCH (08:48)
--- NOTE | 2019-11-08 08:49 | PDOC.GSPN ---
Surgery Progress Note: Subj - Subjective Patient reports: no new complaints Surgery Progress Note: Obj - Vital signs Vital signs: Vital Signs - Most Recent Temp Pulse Resp BP Pulse Ox 98.3 F 74 18 103/64 95 11/08/19 07:26 11/08/19 07:26 11/08/19 07:26 11/08/19 07:26 11/08/19 07:26 - Physical Exam General: no distress Cardiovascular: regular rate and rhythm Respiratory: clear to auscultation Abdomen: soft, appropriately tender Wound: dressing clean,dry,intact Surgery Progress Note: Results - Labs Result Diagrams: 11/08/19 04:36 11/08/19 04:36 Lab results: Laboratory Results - last 24 hr 11/07/19 11/08/19 11/08/19 23:17 04:36 04:36 WBC 8.6 RBC 2.67 L Hgb 7.4 L Hct 24.0 L MCV 90.1 MCH 27.6 MCHC 30.6 L RDW 15.9 H Plt Count 493 H MPV 7.3 L Neutrophils % 78.9 H Lymphocytes % 11.3 L Monocytes % 9.4 Eosinophils % 0.1 Basophils % 0.3 Neutrophils # 6.8 H Lymphocytes # 1.0 L Monocytes # 0.8 H Eosinophils # 0.0 Basophils # 0.0 Sodium 137 Potassium 4.8 Chloride 109 H Carbon Dioxide 21 L Anion Gap 12 BUN 18 Creatinine 0.90 Estimated GFR (MDRD) 86 Glucose 123 H POC Glucose 174 H Calcium 8.6 11/08/19 05:22 WBC RBC Hgb Hct MCV MCH MCHC RDW Plt Count MPV Neutrophils % Lymphocytes % Monocytes % Eosinophils % Basophils % Neutrophils # Lymphocytes # Monocytes # Eosinophils # Basophils # Sodium Potassium Chloride Carbon Dioxide Anion Gap BUN Creatinine Estimated GFR (MDRD) Glucose POC Glucose 108 Calcium Surgery Progress Note: A/P - Problem (1) Perforated chronic duodenal ulcer Current Visit: Yes Code(s): K26.5 - CHRONIC OR UNSPECIFIED DUODENAL ULCER WITH PERFORATION Status: Acute - Plan Plan: POD 1 -Has mass like effect to the second portion duodenum. Localized severe inflammation but no free perforation into the peritoneal cavity. Placed drain and G tube in remnant bypassed stomach. This tube could be upsized later for EGD to visualize this area or be used for contrast study -Try clears -encouraged ambulation
--- NOTE | 2019-11-08 10:58 | OP ---
DATE OF PROCEDURE: 11/07/2019 PREOPERATIVE DIAGNOSIS: Perforated duodenal bulb ulcer. POSTOPERATIVE DIAGNOSIS: Perforated duodenal bulb ulcer. PROCEDURES PERFORMED: Exploratory laparotomy, wide drainage of duodenum, placement of open stomach remnant G-tube. ANESTHESIA: General. ESTIMATED BLOOD LOSS: 100 mL. COMPLICATIONS: None. FINDINGS: The patient has a large mass-like effect in the first and second portion of the duodenum. The base of the gallbladder was fused to the side of the duodenum. His remnant stomach appears to be anterior to previous gastrojejunostomy from Yue-en-Y, that was done open back in 1999. DESCRIPTION OF PROCEDURE: The patient was taken to the operating room and laid supine on the operating room table. After general anesthetic was obtained, a Jaime was placed. The abdomen was prepped and draped in a sterile fashion. A midline incision was made, had to cut through old mesh to get into the abdominal cavity. Multiple posterior abdominal adhesions were taken down. The patient's greater omentum was stuck to the posterior aspect of the mesh, a lot of this was done with LigaSure. Care was taken to avoid injury to the bowel or colon. The falciform ligament was taken down exposing the right upper quadrant. The gallbladder was fused over the top to the falciform. This was taken down very carefully. There was significant localized inflammatory change in the right upper quadrant, especially in the area of the first and second portions of the duodenum. Third and fourth portion of the duodenum appeared soft and non-inflamed. There was a mass-like effect in the second portion of the duodenum in this area of supposed perforation. There was no evidence of enteric content leakage. There was no turbid fluid. No purulence. No free perforation into the abdominal cavity. Because of this significant localized inflammatory change and lack of perforation, decided to drain this area and put off definitive resection if necessary to a later date with a more specialized hepatobiliary type surgeon. The remnant stomach before the pylorus was anterior to previous gastrojejunostomy, and so along the greater curve this did appear to pull up to the posterior abdominal wall. Decision was made to place open G-tube. This would potentially allow for access to the remnant stomach for radiologic procedures potentially and contrast procedures for further evaluation. A 20 was brought in through a separate stab incision. A pursestring of 2-0 silk was placed on the greater curve of the stomach and a gastrotomy was made and the was sewn into the stomach using the pursestring. The was pulled and the stomach was pulled to the posterior abdominal wall and sutured to the posterior peritoneum using interrupted silk sutures. There was no injury to any intraabdominal structures. Midline fascia was closed using #1 PDS from top and bottom and tied in the middle. Subcutaneous tissues were irrigated and closed using 3-0 Vicryl and lucian. Sterile dressings were placed, dressings were placed around the drain site as well. The patient then went to Recovery in stable condition. All instrument counts, needle counts, and lap counts were correct. Job ID: [id number]
[2019-11-08] MEDS: Enoxaparin Sodium 40 MG/0.4 ML SYRINGE SC SCH (11:51)
[2019-11-08] MEDS: Lisinopril 10 MG TAB PO SCH (14:48)
[2019-11-08] MEDS ORDERED: Acetaminophen 325 MG TAB PO PRN (18:48)
[2019-11-08] MEDS: Flecainide 50 MG TAB PO SCH (20:30)
[2019-11-09] MEDS: Sodium Chloride 0.9% 1,000 ML IV SCH (05:00)
[2019-11-09] MEDS ORDERED: Fentanyl 100 MCG/2 ML VIAL SLOW IVP PRN ×2 (08:37)
[2019-11-09] MEDS ORDERED: HYDROcodone/Acetaminophen 7.5/325 mg Tablet PO PRN (08:37)
--- NOTE | 2019-11-09 08:41 | PDOC.GSPN ---
Surgery Progress Note: Subj - Subjective Patient reports: no new complaints, tolerating liquids well Surgery Progress Note: Obj - Vital signs Vital signs: Vital Signs - Most Recent Temp Pulse Resp BP Pulse Ox 98.6 F 78 14 123/71 94 L 11/09/19 08:13 11/09/19 08:13 11/09/19 08:13 11/09/19 08:13 11/09/19 08:13 - Physical Exam General: no distress Cardiovascular: regular rate and rhythm Respiratory: clear to auscultation Abdomen: soft, appropriately tender Wound: healing well Surgery Progress Note: Results - Labs Result Diagrams: 11/08/19 04:36 11/08/19 04:36 Lab results: Laboratory Results - last 24 hr 11/09/19 04:55 POC Glucose 147 H Surgery Progress Note: A/P - Problem (1) Perforated chronic duodenal ulcer Current Visit: Yes Code(s): K26.5 - CHRONIC OR UNSPECIFIED DUODENAL ULCER WITH PERFORATION Status: Acute - Plan Plan: POD 2 -full liquids -dc herb digger -possible home tomorrow -flush G tube
[2019-11-09] MEDS: Lisinopril 10 MG TAB PO SCH (08:52)
[2019-11-09] MEDS: Enoxaparin Sodium 40 MG/0.4 ML SYRINGE SC SCH (08:52)
[2019-11-09] MEDS: Pantoprazole 40 MG VIAL IVP SCH (08:52)
--- NOTE | 2019-11-09 11:12 | EKG ---
Test Reason : Blood Pressure : / mmHG Vent. Rate : 057 BPM Atrial Rate : 057 BPM P-R Int : 166 ms QRS Dur : 092 ms QT Int : 438 ms P-R-T Axes : 028 -02 000 degrees QTc Int : 426 ms Sinus bradycardia Otherwise normal ECG Confirmed by RICARDO MATTHEWS, DENILSON Vang ([id number]), editorial assistant ZULEMA CHAVARRIA ([id number]) on 11/09/2019 11:12:38 AM Referred By: Confirmed By:DENILSON SILVA MD
[2019-11-09] MEDS: HYDROcodone/Acetaminophen 7.5/325 mg Tablet PO PRN ×2 (12:00→18:26)
[2019-11-09] MEDS: HumaLOG 300 UNITS/3 ML VIAL SC PRN ×2 (12:02→17:46)
[2019-11-09] MEDS: Flecainide 50 MG TAB PO SCH (20:28)
[2019-11-10] MEDS: HumaLOG 300 UNITS/3 ML VIAL SC PRN (06:22)
[2019-11-10 07:47] VITALS: BP 108/72; TEMP 98.1
[2019-11-10] MEDS: Enoxaparin Sodium 40 MG/0.4 ML SYRINGE SC SCH (09:46)
[2019-11-10] MEDS: Pantoprazole 40 MG VIAL IVP SCH (09:49)
--- NOTE | 2019-11-10 10:09 | DIS ---
DATE OF ADMISSION: 11/07/2019 DATE OF DISCHARGE: 11/10/2019 ADMIT DIAGNOSES: Chronic perforation of duodenal ulcer, history of gastric bypass, diabetes, hypertension. DISCHARGE DIAGNOSES: Chronic perforation of duodenal ulcer, history of gastric bypass, diabetes, hypertension. PROCEDURES: Exploratory laparotomy with drain placement and gastrostomy tube by Dr. Pastor without complication. BRIEF HISTORY: The patient is a 59-year-old male, who presents with a history of back pain, but hemodynamically stable, underwent CT scan, which showed evidence of perforated duodenal ulcer. The patient has previous gastric bypass. On exploratory laparotomy, he had no obvious perforation into the peritoneal cavity. He had mass-like effect at the first and second portion of the duodenum. Decision was made not to resect this given the likely extent of resection. Potential for injury to bile duct. Difficulty removing remnant stomach if the duodenum was removed. So, a G-tube was placed in the drain. The patient did extremely well postop. His DANIEL drain is being removed today. He is taught how to flush his G-tube. The G-tube is in the remnant stomach, so that can be used as a source for oral contrast to access this area later on. He has had this history for a while. He has been anemic for a while. The question is whether he is going to need resection of this at some point that would likely be need to be done in [facility] by hepatobiliary surgeon. So, we will follow him closely as an outpatient. Do followup CT scan at some point. As for now, he is doing well, he is tolerating diet, his pain is controlled. He is being discharged home on tramadol for pain, Zofran for nausea. He will follow up with me in the office in 10 days for staple removal. Job ID: [id number]
[2019-11-10] MEDS: Lisinopril 10 MG TAB PO SCH (10:12)
== END 2019-11-10 11:23 | disposition home or self-care (01) | DRG 328 ==
LOC: ERS 11:50 → SDC 19:46 → SJJU 20:22 → OBSVTOIN 20:22
PROVIDERS: ADMIT Surgery; ATTEND Surgery
PROC: 0D9600Z Drainage of Stomach with Drainage Device, Open Approach (ICD-10-PCS; principal; 2019-11-07)
DX: K26.5 Chronic or unspecified duodenal ulcer with perforation (principal); I10 Essential (primary) hypertension; D64.9 Anemia, unspecified; E11.9 Type 2 diabetes mellitus without complications; F41.9 Anxiety disorder, unspecified; F32.9 Major depressive disorder, single episode, unspecified; G43.909 Migraine, unspecified, not intractable, without status migrainosus; Z86.010 Personal history of colon polyps; Z88.2 Allergy status to sulfonamides; Z88.8 Allergy status to other drugs, medicaments and biological substances; Z98.0 Intestinal bypass and anastomosis status
CPT/HCPCS: 36415; 36416; 71045; 71275; 72191; 74175; 76705; 80048; 80053; 82550; 83690; 83880; 84484; 85025; 93005; 96365; 96375; 96376; C9113; J0694; J1170; J1200; J1650; J1885; J2001; J2405; J2704; J2930; J3010; J3490; S0028

== ENCOUNTER 2019-12-08 08:28 | Outpatient (CLI) | payer MEDICARE ==
--- NOTE | 2019-12-12 10:10 | CT ---
CT ABDOMEN AND PELVIS WITH IV AND ORAL CONTRAST: HISTORY: Duodenal ulcer. Abdomen pain. Follow-up. COMPARISON: 11/07/2019. FINDINGS: Recent postoperative changes of anterior upper abdomen are apparent. Percutaneous gastrostomy feeding catheter in good position. Oral contrast was administered through the PEG tube. Contrast extends past the area of ulceration at the superior aspect of the region of the gastric pylorus/duodenal bulb . Gas within the area of ulceration projecting superiorly is 1.7 cm greatest diameter. Inflammation in this area is less pronounced than on the prior study. No evidence of free intraperito ceasar gas. The contrast extends into the third portion of the duodenum but has not definitely extended beyond th e anastomosis to the jejunum. Postoperative changes consistent with Yue-en-Y configuration. No evidence of bowel obstruction. Prominent degenerative changes of the lower lumbar spine, with central canal and foraminal stenoses m ost pronounced at the L4-5 level. IMPRESSION : 1. Evidence of recent upper abdomen surgery. 2. Gastrostomy feeding catheter without evidence of complication. 3. 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 Ulceration at the gastric pylorus/duodenal bulb without evid ence of perforation. Appearance improved from the prior exam. Transcribed Date/Time: 12/12/2019 12:44 PM
[2019-12-12] MEDS ORDERED: Iopamidol 370 76% 50 ML VIAL FS ONE (12:00)
[2019-12-12] MEDS ORDERED: Iopamidol 370 76% 100 ML VIAL ONE (12:00)
== END 2019-12-08 08:29 | disposition home or self-care (01) ==
LOC: CT 08:28
PROVIDERS: ATTEND Surgery
DX: K26.7 Chronic duodenal ulcer without hemorrhage or perforation (principal); Z93.1 Gastrostomy status; Z98.890 Other specified postprocedural states
CPT/HCPCS: 74177; Q9967

== ENCOUNTER 2019-12-13 07:44 | Emergency (ER) | payer MEDICARE ==
--- NOTE | 2019-12-13 09:12 | RAD ---
ABDOMEN 1 VIEW: HISTORY: Pulled G-tube. COMPARISON: CT prior day. FINDINGS: Single radiograph of the abdomen demonstrates contrast through the gastrostomy tube within the gastri c lumen and proximal small bowel. IMPRESSION: Contrast within the stomach and proximal small bowel. POS: HOME
[2019-12-13] MEDS ORDERED: GASTROGRAFIN 30 ML BOT ONE (11:44)
== END 2019-12-13 08:50 | disposition home or self-care (01) ==
LOC: ERS 07:44
DX: K94.23 Gastrostomy malfunction (principal); D64.9 Anemia, unspecified; I10 Essential (primary) hypertension; E11.9 Type 2 diabetes mellitus without complications; F32.9 Major depressive disorder, single episode, unspecified; Z79.899 Other long term (current) drug therapy; Z79.84 Long term (current) use of oral hypoglycemic drugs
CPT/HCPCS: 43762; 74018; B4087; Q9963

== ENCOUNTER 2020-06-06 09:37 | Observation (INO) | payer MEDICARE, OTHER ==
[2020-06-06] MEDS ORDERED: Aspirin Chewable 81 MG TAB ONE (10:15)
[2020-06-06] MEDS ORDERED: Nitroglycerin 2% Ointment 1 INCH/1 GM Packet ONE (10:15)
--- NOTE | 2020-06-06 10:26 | RAD ---
EXAM: Single view of the chest HISTORY: Chest pain and dry cough COMPARISON: None FINDINGS: Single view of the chest shows a normal sized cardiomediastinal silhouette. There is stabl e elevation the right hemidiaphragm. There is no evidence of consolidation, mass, or pleural effusion. No acute osseous abnormality. IMPRESSION: No evidence of acute cardiopulmonary disease
[2020-06-06 10:33] LABS: #Basophils 0.1 thou/uL (0.0-0.2); #Eosinphils 0.4 thou/uL (0.0-0.7); #Lymphocytes 1.9 thou/uL (1.20-3.40); #Monocytes 0.6 thou/uL (0.11-0.59); #Neutrophils 4.7 thou/uL (1.40-6.50); %Basophils 0.7 % (0.0-1.0); %Eosinophils 4.9 % (0.0-10.0); %Lymphocytes 24.7 % (21.0-51.0); %Monocytes 8.1 % (0.0-10.0); %Neutrophils 61.6 % (42.0-75.0); Hemoglobin 13.5 g/dL (14.0-18.0); Mean Corpuscular HGB CONC 33.9 g/dL (32.0-36.0); Mean Corpuscular Hemoglobin 31.1 pg (27.0-31.0); Mean Corpuscular Volume 91.7 fL (78.0-98.0); Mean Platelet Volume 7.9 fL (7.4-10.4); Platelet Count 387 thou/uL (130-400); Red Blood Cell (RBC) Count 4.33 mill/uL (4.70-6.10); White Blood Cell (WBC) Count 7.6 thou/uL (4.8-10.8)
[2020-06-06 10:56] LABS: ALT (SGPT) 21 U/L (8-55); AST (SGOT) 21 U/L (5-34); Albumin 3.9 g/dL (3.4-4.8); Alkaline Phosphatase 74 U/L (40-110); Anion Gap 15 mmol/L (10-20); BUN (Urea Nitrogen) 16 mg/dL (8.4-25.7); Bilirubin, Total 0.2 mg/dL (0.2-1.2); Calc. Creatinine Clearance 0 mL/min (70-130); Calcium 8.7 mg/dL (7.8-10.44); Carbon Dioxide 19 mmol/L (23-31); Chloride 108 mmol/L (98-107); Estimated GFR-MDRD Greater than 90; Globulin 3.3 g/dL (2.4-3.5); Glucose 114 mg/dL (80-115); Lipase 17 U/L (8-78); Potassium 4.5 mmol/L (3.5-5.1); Protein, Total 7.2 g/dL (5.8-8.1); Sodium 137 mmol/L (136-145)
--- NOTE | 2020-06-06 11:44 | PDOC.FPRHP ---
- History of Present Illness Chief Complaint: Chest Pain History of Present Illness: 60yo male with hx of DM2, HTN, a flutter, presents to ED with CP. First noticed a cough on Wednesday. Chest pain started on Wednesday, and has increased in intensity and frequency prompting him to come to ED. Described as located over left chest, feels like "heart in a vice", no known inciting event, happens at rest or with activity, resolves after 15-20 minutes with rest. Had associated nausea, PAK and SOB. Never had pain like this before, no history of cath. Has had stress tests in the past for work, normal results. See Dr. Reese outpatient. ED Course: Aspirin 325, Nitro-bid transdermal - Allergies/Adverse Reactions Allergies Allergy/AdvReac Type Severity Reaction Status Date / Time Iodine and Iodide Containing Allergy Verified 06/06/20 14:07 Produc shellfish derived Allergy Verified 06/06/20 14:07 - Home Medications Medication Instructions Recorded Confirmed Type Ferrous Sulfate [Feosol] 325 mg PO BID-WM #30 tab 02/20/19 06/06/20 Rx Pantoprazole [Protonix] 40 mg PO DAILY #30 tab 02/20/19 06/06/20 Rx Insulin Degludec [Tresiba] 40 unit SQ DAILY #1 box 02/21/19 06/06/20 Rx Metoprolol Succinate 100 mg PO DAILY #30 tab.er.24h 02/21/19 06/06/20 Rx QUEtiapine Fumarate [Quetiapine 50 mg PO HS #30 tab.er.24h 02/21/19 06/06/20 Rx Fumarate ER] Sertraline HCl 100 mg PO HS #30 tablet 02/21/19 06/06/20 Rx Topiramate 50 mg PO BID #60 tablet 02/21/19 06/06/20 Rx Flecainide [Tambocor] 50 mg PO HS 11/07/19 06/06/20 History Lisinopril 10 mg PO DAILY 11/07/19 06/06/20 History Naproxen 500 mg PO Q6HR PRN 06/06/20 06/06/20 History metFORMIN [Glucophage] 1,000 mg PO BID-WM 06/06/20 06/06/20 History - History PMHx: DM2, obesity, dementia, MDD, ANTHONY, HTN, osteoarthritis, a flutter, migraine PSHx: gastric bypass, G tube placement, hernia with mesh FHx: mom and sisters- DM; father- heart problems Social: denies T/A/D - Review of Systems General: denies: fever/chills, weight/appetite/sleep changes Eyes: denies: eye pain, vision changes ENT: denies: nasal congestion, rhinorrhea Respiratory: reports: cough, shortness of breath. denies: congestion Cardiovascular: reports: chest pain. denies: palpitation, edema, orthopnea Gastrointestinal: reports: nausea. denies: vomiting, diarrhea, abdominal pain Genitourinary: denies: incontinence, dysuria Skin: denies: rashes Musculoskeletal: denies: pain, tenderness Neurological: denies: numbness, syncope - Vital signs BP: 125/82, HR 54, RR 19, O2 95% on RA, T 98.2F, Wt 102kg - Physical Exam Constitutional: NAD, awake, alert and oriented, well developed HEENT: normocephalic and atraumatic, no scleral icterus, grossly normal vision, grossly normal hearing, MMM Neck: supple, FROM Chest: no-tender to palpation Heart: RRR, normal S1/S2, no murmurs/rubs/gallops, pulses present, no edema Lungs: CTAB, no respiratory distress, no wheezing Abdomen: soft, non-tender, bowel sounds present Musculoskeletal: normal structure, normal tone Neurological: no focal deficit, normal sensation Skin: no rash/lesions, no jaundice Heme/Lymphatic: no unusual bruising or bleeding Psychiatric: normal mood and affect, good judgment and insight, intact recent and remote memory FMR H&P: Results - Labs Result Diagrams: 06/06/20 10:15 06/06/20 10:15 Lab results: WBC 7.6 thou/uL (4.8-10.8) 06/06/20 10:15 Hgb 13.5 g/dL (14.0-18.0) L 06/06/20 10:15 Hct 39.7 % (42.0-52.0) L 06/06/20 10:15 MCV 91.7 fL (78.0-98.0) 06/06/20 10:15 Plt Count 387 thou/uL (130-400) 06/06/20 10:15 Neutrophils % 61.6 % (42.0-75.0) 06/06/20 10:15 Sodium 137 mmol/L (136-145) 06/06/20 10:15 Potassium 4.5 mmol/L (3.5-5.1) 06/06/20 10:15 Chloride 108 mmol/L (98-107) H 06/06/20 10:15 Carbon Dioxide 19 mmol/L (23-31) L 06/06/20 10:15 BUN 16 mg/dL (8.4-25.7) 06/06/20 10:15 Creatinine 0.79 mg/dL (0.7-1.3) 06/06/20 10:15 Glucose 114 mg/dL (80-115) 06/06/20 10:15 Calcium 8.7 mg/dL (7.8-10.44) 06/06/20 10:15 Total Bilirubin 0.2 mg/dL (0.2-1.2) 06/06/20 10:15 AST 21 U/L (5-34) 06/06/20 10:15 ALT 21 U/L (8-55) 06/06/20 10:15 Alkaline Phosphatase 74 U/L (40-110) 06/06/20 10:15 B-Natriuretic Peptide 79.5 pg/mL (0-100) 06/06/20 10:15 Serum Total Protein 7.2 g/dL (5.8-8.1) 06/06/20 10:15 Albumin 3.9 g/dL (3.4-4.8) 06/06/20 10:15 Lipase 17 U/L (8-78) 06/06/20 10:15 - EKG Interpretation EKG: sinus bradycardia - Radiology Interpretation Chest x-ray Status: report reviewed by ny FMR H&P: A/P - Plan 60yo male with hx of DM2, HTN, a flutter being evaluated for chest pain #typical chest pain -trop: neg x 2, BNP normal, CXR: no acute findings, ekg: sinus bradycardia w/RBBB unchanged from previous ekg -ASA and nitro TD given in ED -pending NM 2 day stress test -diet: NPO -admit tele, obs #DM2 -continue home med: jardiance, tresiba, metformin -hypoglycemia protocol #MALLORY -continue home med: ferrous sulfate #Anxiety/Depression -continue home med: quetiapine, sertraline #HTN -continue home med: lisinopril -hold beta phuong for stress tomorrow #hx of a flutter -continue home med: flecainide -monitor on tele #migraine -continue home med: topiramate #GERD -continue home med: protonix Diet: NPO IVF: SL Code: Full PCP: DEVEN Lucas Dispo: Stable, admit to tele obs, pending NM stress, LOS < 48hours FMR H&P: Upper Level - Plan Date/Time: 06/06/20 1144 Mr Robertson is a 60yo male with pmh of HTN and DMII who presents with squeezing chest pain that started Tuesday 05/29. Initially it was intermittent but over the last few days it has increased in intensity and starting today has been constant. Pain improved with Nitro here in ED. Denies radiation or associated diaphoresis, nausea, vomiting. Not worse with exertion. Denies SOB. Has not eaten today, reports decreased appetite. PE: General: NAD, obese CV: Bradycardic, no murmurs Pulm: CTA b/l, no resp distress Extremities: No edema A/P: Typical Chest Pain - EKG with bradycardia, RBBB seen on last EKG. Trop neg x1, continue to trend. CXR wnl. Removed Nitro patch, can go to stress test in 2 hours. Will plan for 2 days stress. Admit to tele. NPO until after stress and again at midnight. Hx of Aflutter - NSR, continue Flecanide and Metoprolol. See Dr Reese outpt. Monitor on tele. HTN - Continue home meds, hold BB for stress I, Opal Lucas, have evaluated this patient and agree with findings/plan as outlined by graphic design intern resident. Pertinent changes/additions are listed here.
[2020-06-06] MEDS ORDERED: Ondansetron ODT 4 MG TAB PO PRN (12:23)
[2020-06-06] MEDS ORDERED: Acetaminophen 325 MG TAB PO PRN (12:23)
[2020-06-06] MEDS ORDERED: Ondansetron PF 4 MG/2 ML Vial IVP PRN (12:23)
[2020-06-06] MEDS ORDERED: Acetaminophen 650 MG Suppository PR PRN (12:23)
[2020-06-06] MEDS ORDERED: Scopolamine 1.5 mg/72 hour Patch TOP SCH (14:15)
[2020-06-06 14:26] LABS: Troponin I Less than 0.010 ng/mL (< 0.028)
[2020-06-06] MEDS ORDERED: Dextrose 5% in Water 1,000 ML IV PRN (15:13)
[2020-06-06] MEDS ORDERED: HumaLOG 300 UNITS/3 ML VIAL SC PRN (15:13)
[2020-06-06] MEDS ORDERED: Dextrose 50% Abboject 50 ML SYRINGE SLOW IVP PRN (15:13)
[2020-06-06] MEDS: Ferrous Sulfate 325 MG TAB PO SCH (17:01)
[2020-06-06] MEDS: metFORMIN 500 MG TAB PO SCH (17:01)
[2020-06-06 17:28] LABS: Troponin I 0.015 ng/mL (< 0.028)
[2020-06-06] MEDS: Topiramate 25 MG TAB PO SCH (20:56)
[2020-06-06] MEDS ORDERED: Flecainide 50 MG TAB PO SCH (21:00)
--- NOTE | 2020-06-07 05:42 | PDOC.FM ---
- Subjective Subjective: Pt resting comfortably. Says he had 1-2 episodes of chest pain overnight. No N/V, PAK or SOB. Tolerated first part of NM stress yesterday. Answered questions. - Objective Vital Signs & Weight: Vital Signs (12 hours) Temp Pulse Resp BP Pulse Ox 06/07/20 03:48 97.3 F L 56 L 14 114/60 97 06/06/20 20:52 98 F 50 L 16 156/79 H 97 Weight Weight 117.435 kg I&O: 06/05/20 06/06/20 06/07/20 06:59 06:59 06:59 Intake Total 240 Balance 240 Result Diagrams: 06/06/20 10:15 06/06/20 10:15 Phys Exam - Physical Examination Constitutional: NAD HEENT: moist MMs, sclera anicteric Neck: supple, full ROM Respiratory: no wheezing, clear to auscultation bilateral Cardiovascular: no significant murmur bradycardic Gastrointestinal: soft, non-tender, no distention Musculoskeletal: no edema, pulses present Neurological: non-focal, normal sensation Psychiatric: normal affect, A&O x 3 Skin: no rash, cap refill <2 seconds Dx/Plan - Plan Plan: 60yo male with hx of DM2, HTN, a flutter being evaluated for chest pain #typical chest pain -trop: neg x 3, BNP normal, ekg: sinus bradycardia -s/p day 1 of 2 day NM stress test, if abnormal will consult cardiology -diet: NPO -if stress normal, will discharge to f/u with hand counter and PCP outpatient. #sinus bradycardia -new onset, no hx ADOLFO -on metoprolol at home, held while in hospital -pending NM stress today -will continue to monitor #DM2 -continue home med: jardiance, tresiba, metformin -hypoglycemia protocol #MALLORY -continue home med: ferrous sulfate #Anxiety/Depression -continue home med: quetiapine, sertraline #HTN -continue home med: lisinopril -hold beta phuong for stress tomorrow #hx of a flutter -continue home med: flecainide -monitor on tele #migraine -continue home med: topiramate #GERD -continue home med: protonix Diet: NPO IVF: SL Code: Full PCP: DEVEN Lucas Dispo: Stable, admit to tele obs, pending NM stress, LOS < 48hours
[2020-06-07] MEDS ORDERED: Empagliflozin 10 MG TAB PO SCH (09:00)
[2020-06-07] MEDS ORDERED: Lisinopril 10 MG TAB PO SCH (09:00)
[2020-06-07] MEDS ORDERED: FLU VACC QS2020-21(6MOS UP)/PF 60 MCG/0.5 ML SYRINGE IM ONE (09:00)
[2020-06-07] MEDS ORDERED: Non-Formulary Item 1 EACH (Insulin Degludec [Tresiba] 100 UNIT/ML Vial) SQ SCH (09:00)
[2020-06-07] MEDS ORDERED: Insulin Glargine 40 UNITS in Pre-Filled Syringe SC SCH (09:00)
[2020-06-07 11:01] LABS: SARS-CoV-2 MS2 Positive; SARS-CoV-2 N Gene Negative; SARS-CoV-2 S Gene Negative; SARS-CoV-2 by NAA Not Detected (NotDetected); SARS-CoV-2 orf1ab Negative
--- NOTE | 2020-06-07 11:36 | NM ---
Radionucleotide stress and rest myocardial perfusion scan with CT attenuation correction and SPECT im aging Left ventricular wall motion evaluation and ejection fraction HISTORY: Chest pain. FINDINGS: Lexiscan protocol. Homogeneous uptake of radiotracer throughout the left ventricular myocar dium. No focal perfusion defect or reversibility. QGS analysis of gated SPECT images shows no focal wall motion abnormalities. Left ventricular ejectio n fraction calculated at 52%. IMPRESSION : No evidence of ischemia. Borderline LVEF 52%.
[2020-06-07] MEDS: Topiramate 25 MG TAB PO SCH (11:39)
[2020-06-07] MEDS: Ferrous Sulfate 325 MG TAB PO SCH (11:40)
[2020-06-07] MEDS: metFORMIN 500 MG TAB PO SCH (12:31)
[2020-06-07] MEDS ORDERED: Regadenoson 0.4 MG/5 ML SYRINGE ONE (14:46)
[2020-06-07 16:45] VITALS: BMI 35.9
[2020-06-07 17:28] VITALS: BP 128/82; TEMP 98
--- NOTE | 2020-06-09 13:37 | DIS ---
DATE OF ADMISSION: 06/06/2020 DATE OF DISCHARGE: 06/07/2020 RESIDENT: Teresa Davis MD, PGY-1 ADMITTING ATTENDING: Oswaldo Reeder MD DISCHARGE ATTENDING: Oswaldo Reeder MD CONSULTS: No consults. PROCEDURES: Nuclear medicine stress on 06/06/2020.RESULTS: No evidence of ischemia, LVEF 52% PRIMARY DIAGNOSIS: Typical chest pain. SECONDARY DIAGNOSES: 1. Type 2 diabetes. 2. Iron deficiency anemia. 3. Anxiety, depression. 4. Hypertension. 5. A-flutter. 6. Migraine. MEDICATIONS: 1. Metoprolol succinate 25 mg p.o. daily. 2. Ferrous sulfate 325 p.o. b.i.d. 3. Flecainide 50 mg daily. 4. Tresiba 40 units daily. 5. Lisinopril 10 mg daily. 6. Metformin 1000 mg b.i.d. 7. Naproxen 500 mg as needed. Discontinue medication metoprolol 100 daily. HISTORY OF PRESENT ILLNESS: 60-year-old male with history of hypertension, type 2 diabetes, who presents with squeezing chest pain to the left chest for 3 days. Pain increasing in frequency and intensity. Pain improved in ED with nitro. Associated diaphoresis, nausea, and shortness of breath. No history of this type of pain or cardiac cath. Sees Dr. Reese, Cardiology, as outpatient for history of A-flutter. While in hospital, had nuclear medicine stress test, result as above. Also was experiencing new onset sinus bradycardia so metoprolol dosage was adjusted. Patient tolerated procedure well and chest pain improved. He was stable for discharge. DISPOSITION: Stable. DISCHARGE INSTRUCTIONS: 1. Location: Home. 2. Diet: Heart healthy. 3. Activity: As tolerated. 4. Followup: With PCP in [address] Reese in 1 week. Job ID: [id number] [facility]
== END 2020-06-07 17:50 | disposition home or self-care (01) ==
LOC: ERS 09:37 → 2NO 11:50
PROVIDERS: ADMIT Family Medicine; ATTEND Family Medicine
DX: R07.89 Other chest pain (principal); E11.9 Type 2 diabetes mellitus without complications; D50.9 Iron deficiency anemia, unspecified; F41.1 Generalized anxiety disorder; F32.9 Major depressive disorder, single episode, unspecified; I48.92 Unspecified atrial flutter; I10 Essential (primary) hypertension; G43.909 Migraine, unspecified, not intractable, without status migrainosus; K21.9 Gastro-esophageal reflux disease without esophagitis; E66.9 Obesity, unspecified; Z68.35 Body mass index [BMI] 35.0-35.9, adult; Z79.4 Long term (current) use of insulin; Z79.899 Other long term (current) drug therapy; Z91.013 Allergy to seafood; Z91.041 Radiographic dye allergy status; Z20.828 Contact with and (suspected) exposure to other viral communicable diseases
CPT/HCPCS: 71045; 78452; 80053; 82962 ×2; 83690; 83880; 84484 ×2; 85025; 93005; 93017; 99285; A9500; U0003; 36415; 36416; 87635; G0378; J1815; J2785

== ENCOUNTER 2020-07-29 12:10 | Emergency (ER) | payer MEDICARE ==
[2020-07-29 18:46] LABS: SARS-CoV-2 MS2 Positive; SARS-CoV-2 N Gene Negative; SARS-CoV-2 S Gene Negative; SARS-CoV-2 by NAA Not Detected (NotDetected); SARS-CoV-2 orf1ab Negative
== END 2020-07-29 12:51 | disposition home or self-care (01) ==
LOC: ER/OP 12:10
DX: Z53.21 Procedure and treatment not carried out due to patient leaving prior to being seen by health care provider (principal)
CPT/HCPCS: 87635; U0003

== ENCOUNTER 2022-04-24 22:44 | Inpatient (IN) | payer MEDICARE ==
[2022-04-24 23:12] LABS: #Basophils 0.1 thou/uL (0.0-0.2); #Eosinphils 0.4 thou/uL (0.0-0.7); #Lymphocytes 2.1 thou/uL (1.20-3.40); #Monocytes 0.7 thou/uL (0.11-0.59); #Neutrophils 5.1 thou/uL (1.40-6.50); %Basophils 1.3 % (0.0-1.0); %Eosinophils 4.6 % (0.0-10.0); %Lymphocytes 24.7 % (21.0-51.0); %Monocytes 8.7 % (0.0-10.0); %Neutrophils 60.6 % (42.0-75.0); Hemoglobin 14.4 g/dL (14.0-18.0); Mean Corpuscular HGB CONC 33.9 g/dL (32.0-36.0); Mean Corpuscular Hemoglobin 32.4 pg (27.0-31.0); Mean Corpuscular Volume 95.8 fL (78.0-98.0); Platelet Count 291 thou/uL (130-400); RBC Distribution Width 12.3 % (11.5-14.5); Red Blood Cell (RBC) Count 4.45 mill/uL (4.70-6.10); White Blood Cell (WBC) Count 8.3 thou/uL (4.8-10.8)
[2022-04-24 23:32] LABS: ALT (SGPT) 20 U/L (8-55); AST (SGOT) 21 U/L (5-34); Albumin 4.2 g/dL (3.4-4.8); Alkaline Phosphatase 103 U/L (40-110); Anion Gap 14 mmol/L (10-20); BUN (Urea Nitrogen) 23 mg/dL (8.4-25.7); Bilirubin, Total 0.3 mg/dL (0.2-1.2); Calc. Creatinine Clearance 0 mL/min (70-130); Calcium 8.6 mg/dL (7.8-10.44); Carbon Dioxide 19 mmol/L (23-31); Chloride 109 mmol/L (98-107); Estimated GFR 83; Globulin 3.1 g/dL (2.4-3.5); Glucose 121 mg/dL (80-115); Lipase 24 U/L (8-78); Potassium 3.8 mmol/L (3.5-5.1); Protein, Total 7.3 g/dL (5.8-8.1); Sodium 138 mmol/L (136-145)
[2022-04-25] MEDS ORDERED: methylPREDNISolone Sod Succ 40 MG VIAL ONE (01:28)
[2022-04-25] MEDS ORDERED: Famotidine/PF 20 mg/2ml Vial ONE (01:28)
[2022-04-25] MEDS ORDERED: diphenhydrAMINE 50 MG/ML VIAL ONE (01:28)
[2022-04-25] MEDS ORDERED: Dextrose 50% Abboject 50 ML SYRINGE SLOW IVP PRN (06:23)
[2022-04-25] MEDS ORDERED: HumaLOG 300 UNITS/3 ML VIAL SC PRN (06:23)
[2022-04-25] MEDS ORDERED: Dextrose 5% in Water 1,000 ML IV PRN (06:23)
[2022-04-25 06:53] LABS: Hemoglobin A1c 8.4 % (4.0-6.0)
[2022-04-25 07:05] LABS: Troponin I 0.013 ng/mL (< 0.028)
[2022-04-25] MEDS ORDERED: Nitroglycerin 0.4 MG TAB (25 Tab Bottle) SL PRN ×2 (07:45→15:10)
[2022-04-25] MEDS ORDERED: Ferrous Sulfate 325 MG TAB PO SCH (08:00)
[2022-04-25] MEDS ORDERED: Regadenoson 0.4 MG/5 ML SYRINGE ONE (08:22)
[2022-04-25 08:41] VITALS: BMI 37.0
[2022-04-25] MEDS ORDERED: Lisinopril 10 MG TAB PO SCH (09:00)
[2022-04-25] MEDS ORDERED: Non-Formulary Item 1 EACH (Topiramate [Topiramate] 50 MG Tablet) PO SCH (09:00)
[2022-04-25] MEDS ORDERED: Non-Formulary Item 1 EACH (Insulin Degludec [Tresiba] 100 UNIT/ML Vial) SQ SCH (09:00)
[2022-04-25] MEDS ORDERED: Cetirizine HCl 10 MG TAB PO SCH (09:00)
[2022-04-25] MEDS ORDERED: Aspirin 325 MG TAB PO SCH (09:00)
[2022-04-25] MEDS ORDERED: Iopamidol 370 76% 100 ML VIAL ONE (09:56)
[2022-04-25] MEDS ORDERED: Lidocaine 2% Viscous Solution 10 ML, Aluminum & Magnesium Hydroxide 30 ML SSW SCH (11:30)
[2022-04-25] MEDS: metFORMIN 500 MG TAB PO SCH ×2 (11:34→16:44)
[2022-04-25 11:47] LABS: Troponin I Less than 0.010 ng/mL (< 0.028)
[2022-04-25] MEDS: Atorvastatin Calcium 40 MG TAB PO SCH (12:10)
[2022-04-25] MEDS: Enoxaparin Sodium 40 MG/0.4 ML SYRINGE SC SCH (12:10)
[2022-04-25] MEDS: Insulin Glargine 30 UNITS/0.3 ML VIAL SC SCH (12:11)
[2022-04-25] MEDS: Loratadine 10 MG TAB PO SCH (12:11)
[2022-04-25] MEDS: Topiramate 25 MG TAB PO SCH ×2 (12:12→21:02)
[2022-04-25] MEDS ORDERED: Dicyclomine 10 MG CAP PO PRN (15:26)
[2022-04-25] MEDS ORDERED: Sucralfate 1 GM TAB PO SCH (15:30)
[2022-04-25] MEDS: Fluticasone Propionate Nasal Spray 16 gm Bottle NASAL SCH (16:44)
[2022-04-25] MEDS ORDERED: Flecainide 50 MG TAB PO SCH (21:00)
[2022-04-25] MEDS ORDERED: QUETIAPINE FUMARATE 50 MG PO SCH (21:00)
[2022-04-25] MEDS: Flecainide 50 MG TAB PO SCH (21:01)
[2022-04-26 08:23] LABS: ALT (SGPT) 23 U/L (8-55); AST (SGOT) 28 U/L (5-34); Albumin 3.9 g/dL (3.4-4.8); Alkaline Phosphatase 80 U/L (40-110); Anion Gap 11 mmol/L (10-20); BUN (Urea Nitrogen) 17 mg/dL (8.4-25.7); Bilirubin, Total 0.6 mg/dL (0.2-1.2); Calc. Creatinine Clearance 131 mL/min (70-130); Calcium 8.7 mg/dL (7.8-10.44); Carbon Dioxide 23 mmol/L (23-31); Chloride 108 mmol/L (98-107); Estimated GFR 88; Globulin 3.1 g/dL (2.4-3.5); Glucose 165 mg/dL (80-115); Sodium 138 mmol/L (136-145)
[2022-04-26] MEDS: Enoxaparin Sodium 40 MG/0.4 ML SYRINGE SC SCH (08:24)
[2022-04-26] MEDS: Flecainide 50 MG TAB PO SCH (08:25)
[2022-04-26] MEDS: metFORMIN 500 MG TAB PO SCH (08:25)
[2022-04-26] MEDS: Topiramate 25 MG TAB PO SCH (08:25)
[2022-04-26] MEDS: Insulin Glargine 30 UNITS/0.3 ML VIAL SC SCH (08:25)
[2022-04-26] MEDS: Loratadine 10 MG TAB PO SCH (08:25)
[2022-04-26] MEDS: Atorvastatin Calcium 40 MG TAB PO SCH (08:25)
[2022-04-26] MEDS ORDERED: Lisinopril 20 MG TAB PO SCH (09:00)
[2022-04-26] MEDS ORDERED: Ferrous Sulfate 325 MG TAB PO SCH (09:00)
[2022-04-26] MEDS: Fluticasone Propionate Nasal Spray 16 gm Bottle NASAL SCH (09:50)
[2022-04-26 12:29] VITALS: BP 136/65; TEMP 97.4
== END 2022-04-26 15:00 | disposition home or self-care (01) | DRG 392 ==
LOC: ERS 22:44 → 2SW 04-25 05:51 → OBSVTOIN 04-26 08:27
PROVIDERS: ADMIT Student in an Organized Health Care Education/Training Program; ATTEND Student in an Organized Health Care Education/Training Program
DX: K21.9 Gastro-esophageal reflux disease without esophagitis (principal); K56.1 Intussusception; R07.89 Other chest pain; Z20.822 Contact with and (suspected) exposure to COVID-19; E11.9 Type 2 diabetes mellitus without complications; I10 Essential (primary) hypertension; E66.9 Obesity, unspecified; I48.91 Unspecified atrial fibrillation; F32.A Depression, unspecified; F41.1 Generalized anxiety disorder; M19.90 Unspecified osteoarthritis, unspecified site; D50.9 Iron deficiency anemia, unspecified; Z98.84 Bariatric surgery status
CPT/HCPCS: 36415; 36416; 71045; 74177; 78452; 80053; 80061; 83036; 83690; 83735; 84443; 84484; 85025; 93005; 93017; 94760; 96372; 96374; 96375; A9500; G0378; J1200; J1650; J1815; J2785; J2920; Q9967; S0028; U0003; U0005

== ENCOUNTER 2022-09-27 13:35 | Emergency (ER) | payer MEDICARE ==
[2022-09-27] MEDS ORDERED: EPINEPHrine 1 MG/ML VIAL ONE ×2 (14:29→14:31)
[2022-09-27] MEDS ORDERED: methylPREDNISolone Sod Succ/PF 125 MG/2 ML VIAL ONE (14:29)
[2022-09-27] MEDS ORDERED: diphenhydrAMINE 50 MG/ML VIAL ONE (14:29)
[2022-09-27 14:47] LABS: #Eosinphils 0.1 thou/uL (0.0-0.7); #Lymphocytes 1.5 thou/uL (1.20-3.40); #Monocytes 0.5 thou/uL (0.11-0.59); #Neutrophils 9.2 thou/uL (1.40-6.50); %Basophils 0.3 % (0.0-1.0); %Eosinophils 0.9 % (0.0-10.0); %Lymphocytes 13.1 % (21.0-51.0); %Monocytes 4.2 % (0.0-10.0); %Neutrophils 81.5 % (42.0-75.0); Hemoglobin 14.5 g/dL (14.0-18.0); Mean Corpuscular HGB CONC 35.4 g/dL (32.0-36.0); Mean Corpuscular Hemoglobin 34.2 pg (27.0-31.0); Mean Corpuscular Volume 96.5 fl (78.0-98.0); Mean Platelet Volume 8.3 fL (7.4-10.4); Platelet Count 376 10x3/uL (130-400); RBC Distribution Width 12.3 % (11.5-14.5); Red Blood Cell (RBC) Count 4.24 mill/uL (4.70-6.10); White Blood Cell (WBC) Count 11.2 10x3/uL (4.8-10.8)
[2022-09-27 15:05] LABS: ALT (SGPT) 36 U/L (8-55); AST (SGOT) 30 U/L (5-34); Albumin 4.1 g/dL (3.4-4.8); Alkaline Phosphatase 101 U/L (40-110); Anion Gap 15 mmol/L (10-20); BUN (Urea Nitrogen) 20 mg/dL (8.4-25.7); Bilirubin, Total 0.4 mg/dL (0.2-1.2); Calc. Creatinine Clearance 0 mL/min (70-130); Calcium 8.1 mg/dL (7.8-10.44); Carbon Dioxide 16 mmol/L (23-31); Chloride 110 mmol/L (98-107); Estimated GFR 96; Glucose 192 mg/dL (80-115); Lipase 26 U/L (8-78); Potassium 4.7 mmol/L (3.5-5.1); Protein, Total 7.1 g/dL (5.8-8.1); Sodium 136 mmol/L (136-145)
[2022-09-27] MEDS ORDERED: LORazepam 2 MG/ML SYR.(CARPUJECT) ONE (15:28)
== END 2022-09-27 15:52 | disposition home or self-care (01) ==
LOC: ERS 13:35
DX: T78.40XA Allergy, unspecified, initial encounter (principal); D72.829 Elevated white blood cell count, unspecified; E11.9 Type 2 diabetes mellitus without complications; I10 Essential (primary) hypertension; Z79.899 Other long term (current) drug therapy; Z79.84 Long term (current) use of oral hypoglycemic drugs
CPT/HCPCS: 71045; 83605; 83690; 83735; 83880; 84484; 93005; 96372; 96374; 96375; 99285; J0171; J2060; 36415; 80053; 84443; 85025; J1200; J2930

== ENCOUNTER 2022-10-16 20:55 | Inpatient (IN) | payer MEDICARE ==
[2022-10-16] MEDS ORDERED: Mag-Al 1200 mg/1200 mg/30 ML UDCUP ONE (23:00)
[2022-10-16] MEDS ORDERED: Lidocaine Viscous Sol 2% 15 ml UD Cup ONE (23:00)
[2022-10-16] MEDS ORDERED: Pantoprazole 40 MG VIAL ONE (23:45)
[2022-10-16 23:46] LABS: #Basophils 0.1 thou/uL (0.0-0.2); #Monocytes 0.5 thou/uL (0.11-0.59); #Neutrophils 11.2 thou/uL (1.40-6.50); %Basophils 0.7 % (0.0-1.0); %Eosinophils 0.2 % (0.0-10.0); %Lymphocytes 7.9 % (21.0-51.0); %Monocytes 3.7 % (0.0-10.0); %Neutrophils 87.4 % (42.0-75.0); Hemoglobin 6.1 g/dL (14.0-18.0); Mean Corpuscular HGB CONC 33.5 g/dL (32.0-36.0); Mean Corpuscular Hemoglobin 33.4 pg (27.0-31.0); Mean Corpuscular Volume 99.8 fl (78.0-98.0); Mean Platelet Volume 9.3 fL (7.4-10.4); Platelet Count 252 10x3/uL (130-400); RBC Distribution Width 12.9 % (11.5-14.5); Red Blood Cell (RBC) Count 1.81 mill/uL (4.70-6.10); White Blood Cell (WBC) Count 12.8 10x3/uL (4.8-10.8)
[2022-10-16 23:51] LABS: Base Excess -16.9 mEq/L (-2.0 to +3.0); Calcium, Ionized (venous) 1.08 mmol/L (1.16-1.32); Chloride (VBG) 106 mmol/L (98-106); Hemoglobin (Hb) 6.3 g/dL (13.1-17.2)
[2022-10-16 23:53] LABS: Actual Bicarbonate (HCO3v) 10 mEq/L (22-28); pH (venous) 7.16 (7.32-7.43)
[2022-10-16 23:54] LABS: Potassium (VBG) 7.63 mmol/L (3.70-5.30)
[2022-10-17 00:04] LABS: Phosphorus 2.8 mg/dL (2.3-4.7)
[2022-10-17 00:08] LABS: ALT (SGPT) 14 U/L (8-55); AST (SGOT) 11 U/L (5-34); Alkaline Phosphatase 85 U/L (40-110); Anion Gap 16 mmol/L (10-20); BUN (Urea Nitrogen) 74 mg/dL (8.4-25.7); Bilirubin, Total 0.3 mg/dL (0.2-1.2); Calc. Creatinine Clearance 0 mL/min (70-130); Calcium 7.2 mg/dL (7.8-10.44); Carbon Dioxide 10 mmol/L (23-31); Chloride 107 mmol/L (98-107); Estimated GFR 49; Globulin 2.2 g/dL (2.4-3.5); Lipase 19 U/L (8-78); Magnesium 2.2 mg/dL (1.6-2.6); Protein, Total 5.2 g/dL (5.8-8.1); Sodium 125 mmol/L (136-145)
[2022-10-17 00:12] LABS: Glucose 758 mg/dL (80-115); Potassium 7.5 mmol/L (3.5-5.1)
[2022-10-17] MEDS ORDERED: Insulin Regular 300 UNITS/3 ML VIAL ONE (00:43)
[2022-10-17] MEDS ORDERED: INSULIN REGULAR IN 0.9 % NACL 100 UNIT/100 ML BAG ONE (00:43)
[2022-10-17] MEDS ORDERED: Calcium Chloride 1 GM/10 ML Abboject SYRINGE ONE (00:43)
[2022-10-17] MEDS ORDERED: Sodium Bicarb 50 MEQ/50 ML VIAL ONE ×2 (00:43→00:46)
[2022-10-17] MEDS ORDERED: Electrolyte Replacement Protocol 1 EACH IVPB ONE (01:03)
[2022-10-17] MEDS ORDERED: Sodium Chloride 0.9% 1,000 ML IV PRN ×4 (01:03)
[2022-10-17] MEDS ORDERED: Dextrose 50% Abboject 50 ML SYRINGE SLOW IVP PRN ×2 (01:03→19:19)
[2022-10-17] MEDS ORDERED: Ondansetron PF 4 MG/2 ML Vial IVP PRN (01:03)
[2022-10-17] MEDS ORDERED: Dextrose 5 %-0.45 % NaCl 1,000 ML IV PRN (01:03)
[2022-10-17] MEDS ORDERED: NS 0.9% w/ 20 MEQ KCL 1,000 ML IV PRN ×2 (01:03)
[2022-10-17] MEDS ORDERED: Electrolyte Replacement Protocol FS PRN (01:30)
[2022-10-17 02:14] LABS: Anion Gap 17 mmol/L (10-20); BUN (Urea Nitrogen) 75 mg/dL (8.4-25.7); Calc. Creatinine Clearance 0 mL/min (70-130); Calcium 8.5 mg/dL (7.8-10.44); Carbon Dioxide 10 mmol/L (23-31); Chloride 110 mmol/L (98-107); Estimated GFR 46; Glucose 718 mg/dL (80-115); Potassium 5.9 mmol/L (3.5-5.1); Sodium 131 mmol/L (136-145)
[2022-10-17] MEDS ORDERED: Aggrastat 12.5 MG/250 ML 0 ML ONE (03:48)
[2022-10-17] MEDS ORDERED: Albuterol 2.5 MG/0.5 ML NEB ONE (03:48)
[2022-10-17 04:28] LABS: SARS-CoV-2 NAA Rapid Test Not Detected (NotDetected)
[2022-10-17 06:46] VITALS: BMI 37.5
[2022-10-17] MEDS: HUMULIN R 100 UNITS in Sodium Chloride 0.9% 100 ML IVPB SCH ×2 (07:47→17:57)
[2022-10-17 09:06] LABS: Iron 104 ug/dL (65-175); Iron Binding Capacity, Total 199 mcg/dL (261-462); Transferrin, Serum 159 mg/dL (163-344)
[2022-10-17 09:33] LABS: Anion Gap 10 mmol/L (10-20); BUN (Urea Nitrogen) 57 mg/dL (8.4-25.7); Calc. Creatinine Clearance 138 mL/min (70-130); Calcium 6.8 mg/dL (7.8-10.44); Carbon Dioxide 11 mmol/L (23-31); Chloride 120 mmol/L (98-107); Estimated GFR 93; Glucose 209 mg/dL (80-115); Potassium 4.5 mmol/L (3.5-5.1); Sodium 136 mmol/L (136-145)
[2022-10-17] MEDS: Atorvastatin Calcium 40 MG TAB PO SCH (09:55)
[2022-10-17] MEDS: Fluticasone Propionate Nasal Spray 16 gm Bottle NASAL SCH (09:56)
[2022-10-17] MEDS: Ferrous Sulfate 325 MG TAB PO SCH (09:56)
[2022-10-17] MEDS: Flecainide 50 MG TAB PO SCH ×2 (09:56→20:41)
[2022-10-17] MEDS: Topiramate 25 MG TAB PO SCH ×2 (09:57→20:50)
[2022-10-17] MEDS: Lisinopril 20 MG TAB PO SCH (09:57)
[2022-10-17] MEDS: Loratadine 10 MG TAB PO SCH (09:57)
[2022-10-17] MEDS: Pantoprazole 40 MG VIAL IVP SCH ×2 (10:00→20:53)
[2022-10-17] MEDS: D5 1/2 NS w/20 mEq KCL 1,000 ML IV PRN ×3 (10:56→18:06)
[2022-10-17 11:33] LABS: Hemoglobin 7.3 g/dL (14.0-18.0)
[2022-10-17] MEDS ORDERED: Ketamine 50 MG/ML (10ML VIAL) ONE (13:41)
[2022-10-17] MEDS ORDERED: Lidocaine 1% PF 5 ML VIAL ONE (13:48)
[2022-10-17] MEDS ORDERED: PROPOFOL 200 MG/20 ML VIAL ONE (13:48)
[2022-10-17] MEDS ORDERED: Succinylcholine Chloride 100 MG/5 ML SYRINGE FS ONE (13:48)
[2022-10-17] MEDS ORDERED: Ondansetron PF 4 MG/2 ML Vial ONE (13:48)
[2022-10-17] MEDS ORDERED: Promethazine HCl 25 MG/ML VIAL IM PRN (14:24)
[2022-10-17] MEDS ORDERED: Ondansetron HCl/PF 4 MG/2 ML Vial IVP PRN (14:24)
[2022-10-17] MEDS ORDERED: D5 1/2 NS w/20 mEq KCL 1,000 ML ONE (15:01)
[2022-10-17 16:49] LABS: Calcium 7.6 mg/dL (7.8-10.44); Chloride 116 mmol/L (98-107); Glucose 182 mg/dL (80-115); Potassium 4.6 mmol/L (3.5-5.1); Sodium 135 mmol/L (136-145)
[2022-10-17 16:51] LABS: Anion Gap 10 mmol/L (10-20); Carbon Dioxide 14 mmol/L (23-31)
[2022-10-17 16:53] LABS: Calc. Creatinine Clearance 136 mL/min (70-130); Estimated GFR 92
[2022-10-17 16:54] LABS: BUN (Urea Nitrogen) 51 mg/dL (8.4-25.7)
[2022-10-17] MEDS ORDERED: Dextrose 5% in Water 1,000 ML IV PRN (19:19)
[2022-10-17] MEDS ORDERED: Insulin Glargine 30 UNITS/0.3 ML VIAL SC SCH (19:30)
[2022-10-17] MEDS: Sertraline 100 MG TAB PO SCH (20:41)
[2022-10-17] MEDS: Melatonin 3 MG TAB PO PRN (20:41)
[2022-10-17] MEDS: QUEtiapine 25 MG TAB PO SCH (20:41)
[2022-10-18 04:32] LABS: #Eosinphils 0.1 thou/uL (0.0-0.7); #Lymphocytes 1.4 thou/uL (1.20-3.40); #Monocytes 0.6 thou/uL (0.11-0.59); #Neutrophils 5.1 thou/uL (1.40-6.50); %Basophils 0.6 % (0.0-1.0); %Eosinophils 1.3 % (0.0-10.0); %Lymphocytes 19.7 % (21.0-51.0); %Neutrophils 70.5 % (42.0-75.0); Hemoglobin 6.6 g/dL (14.0-18.0); Mean Corpuscular HGB CONC 34.4 g/dL (32.0-36.0); Mean Corpuscular Hemoglobin 32.8 pg (27.0-31.0); Mean Corpuscular Volume 95.4 fl (78.0-98.0); Mean Platelet Volume 8.7 fL (7.4-10.4); Platelet Count 187 10x3/uL (130-400); RBC Distribution Width 14.3 % (11.5-14.5); Red Blood Cell (RBC) Count 2.01 mill/uL (4.70-6.10); White Blood Cell (WBC) Count 7.2 10x3/uL (4.8-10.8)
[2022-10-18 04:53] LABS: Anion Gap 9 mmol/L (10-20); BUN (Urea Nitrogen) 35 mg/dL (8.4-25.7); Calc. Creatinine Clearance 142 mL/min (70-130); Calcium 7.7 mg/dL (7.8-10.44); Carbon Dioxide 13 mmol/L (23-31); Chloride 116 mmol/L (98-107); Estimated GFR 96; Glucose 274 mg/dL (80-115); Potassium 5.3 mmol/L (3.5-5.1); Sodium 133 mmol/L (136-145)
[2022-10-18] MEDS: HumaLOG 300 UNITS/3 ML VIAL SC PRN ×4 (06:32→21:51)
[2022-10-18] MEDS: Pantoprazole 40 MG VIAL IVP SCH ×2 (09:32→21:51)
[2022-10-18] MEDS: Flecainide 50 MG TAB PO SCH ×2 (09:32→21:51)
[2022-10-18] MEDS: Lisinopril 20 MG TAB PO SCH (09:33)
[2022-10-18] MEDS: Ferrous Sulfate 325 MG TAB PO SCH (09:36)
[2022-10-18] MEDS: Atorvastatin Calcium 40 MG TAB PO SCH (09:36)
[2022-10-18] MEDS: Loratadine 10 MG TAB PO SCH (09:36)
[2022-10-18] MEDS: Fluticasone Propionate Nasal Spray 16 gm Bottle NASAL SCH (09:37)
[2022-10-18] MEDS: Insulin Glargine 30 UNITS/0.3 ML VIAL SC SCH (09:48)
[2022-10-18] MEDS: Topiramate 25 MG TAB PO SCH ×2 (11:12→21:58)
[2022-10-18 14:24] LABS: Hemoglobin 8.2 g/dL (14.0-18.0)
[2022-10-18] MEDS: QUEtiapine 25 MG TAB PO SCH (21:51)
[2022-10-18] MEDS: Sertraline 100 MG TAB PO SCH (21:51)
[2022-10-18] MEDS: Melatonin 3 MG TAB PO PRN (23:45)
[2022-10-19 05:56] LABS: #Eosinphils 0.2 thou/uL (0.0-0.7); #Lymphocytes 1.2 thou/uL (1.20-3.40); #Monocytes 0.5 thou/uL (0.11-0.59); #Neutrophils 3.9 thou/uL (1.40-6.50); %Basophils 0.7 % (0.0-1.0); %Eosinophils 2.7 % (0.0-10.0); %Lymphocytes 20.1 % (21.0-51.0); %Monocytes 8.8 % (0.0-10.0); %Neutrophils 67.7 % (42.0-75.0); Hemoglobin 7.7 g/dL (14.0-18.0); Mean Corpuscular HGB CONC 34.4 g/dL (32.0-36.0); Mean Corpuscular Hemoglobin 32.4 pg (27.0-31.0); Mean Corpuscular Volume 94.2 fl (78.0-98.0); Mean Platelet Volume 8.2 fL (7.4-10.4); Platelet Count 178 10x3/uL (130-400); RBC Distribution Width 14.8 % (11.5-14.5); Red Blood Cell (RBC) Count 2.38 mill/uL (4.70-6.10); White Blood Cell (WBC) Count 5.7 10x3/uL (4.8-10.8)
[2022-10-19 06:08] LABS: Anion Gap 9 mmol/L (10-20); BUN (Urea Nitrogen) 17 mg/dL (8.4-25.7); Calc. Creatinine Clearance 150 mL/min (70-130); Calcium 7.5 mg/dL (7.8-10.44); Carbon Dioxide 17 mmol/L (23-31); Chloride 114 mmol/L (98-107); Estimated GFR 98; Glucose 216 mg/dL (80-115); Potassium 4.3 mmol/L (3.5-5.1); Sodium 136 mmol/L (136-145)
[2022-10-19] MEDS: Ferrous Sulfate 325 MG TAB PO SCH (08:44)
[2022-10-19] MEDS: Flecainide 50 MG TAB PO SCH ×2 (08:44→20:28)
[2022-10-19] MEDS: Topiramate 25 MG TAB PO SCH ×2 (08:44→20:26)
[2022-10-19] MEDS: Lisinopril 20 MG TAB PO SCH (08:44)
[2022-10-19] MEDS: Loratadine 10 MG TAB PO SCH (08:44)
[2022-10-19] MEDS: Insulin Glargine 30 UNITS/0.3 ML VIAL SC SCH (08:45)
[2022-10-19] MEDS: Atorvastatin Calcium 40 MG TAB PO SCH (08:45)
[2022-10-19] MEDS: Fluticasone Propionate Nasal Spray 16 gm Bottle NASAL SCH (08:49)
[2022-10-19] MEDS: Pantoprazole 40 MG VIAL IVP SCH ×2 (08:50→20:26)
[2022-10-19] MEDS ORDERED: Insulin Glargine 30 UNITS/0.3 ML VIAL SC SCH ×2 (10:00→21:00)
[2022-10-19] MEDS: HumaLOG 300 UNITS/3 ML VIAL SC PRN ×2 (16:58→20:27)
[2022-10-19] MEDS: QUEtiapine 25 MG TAB PO SCH (20:26)
[2022-10-19] MEDS: Sertraline 100 MG TAB PO SCH (20:26)
[2022-10-20 06:57] LABS: #Eosinphils 0.2 thou/uL (0.0-0.7); #Lymphocytes 1.1 thou/uL (1.20-3.40); #Monocytes 0.6 thou/uL (0.11-0.59); %Basophils 0.5 % (0.0-1.0); %Eosinophils 2.6 % (0.0-10.0); %Lymphocytes 18.9 % (21.0-51.0); %Monocytes 9.8 % (0.0-10.0); %Neutrophils 68.2 % (42.0-75.0); Hemoglobin 7.9 g/dL (14.0-18.0); Mean Corpuscular HGB CONC 34.2 g/dL (32.0-36.0); Mean Corpuscular Hemoglobin 32.3 pg (27.0-31.0); Mean Corpuscular Volume 94.4 fl (78.0-98.0); Mean Platelet Volume 7.9 fL (7.4-10.4); Platelet Count 232 10x3/uL (130-400); RBC Distribution Width 14.6 % (11.5-14.5); Red Blood Cell (RBC) Count 2.44 mill/uL (4.70-6.10); White Blood Cell (WBC) Count 5.8 10x3/uL (4.8-10.8)
[2022-10-20 07:12] VITALS: TEMP 97.7
[2022-10-20 07:19] LABS: Anion Gap 9 mmol/L (10-20); BUN (Urea Nitrogen) 9 mg/dL (8.4-25.7); Calc. Creatinine Clearance 151 mL/min (70-130); Calcium 7.7 mg/dL (7.8-10.44); Carbon Dioxide 18 mmol/L (23-31); Chloride 113 mmol/L (98-107); Estimated GFR 99; Glucose 184 mg/dL (80-115); Potassium 4.2 mmol/L (3.5-5.1); Sodium 136 mmol/L (136-145)
[2022-10-20] MEDS: Lisinopril 20 MG TAB PO SCH (08:12)
[2022-10-20] MEDS: Ferrous Sulfate 325 MG TAB PO SCH (08:13)
[2022-10-20] MEDS: Atorvastatin Calcium 40 MG TAB PO SCH (08:13)
[2022-10-20] MEDS: Insulin Glargine 30 UNITS/0.3 ML VIAL SC SCH (08:13)
[2022-10-20] MEDS: Topiramate 25 MG TAB PO SCH (08:14)
[2022-10-20] MEDS: Loratadine 10 MG TAB PO SCH (08:14)
[2022-10-20] MEDS: Pantoprazole 40 MG VIAL IVP SCH (08:14)
[2022-10-20] MEDS: Fluticasone Propionate Nasal Spray 16 gm Bottle NASAL SCH (08:14)
[2022-10-20] MEDS: Flecainide 50 MG TAB PO SCH (08:15)
[2022-10-20] MEDS: HumaLOG 300 UNITS/3 ML VIAL SC PRN ×2 (13:00→16:54)
[2022-10-20 16:33] VITALS: BP 137/80
== END 2022-10-20 19:30 | disposition home or self-care (01) | DRG 377 ==
LOC: ERS 20:55 → ERHOLD 10-17 01:03 → IMCU/EMU 10-17 05:36 → SURG B 10-18 11:52
PROVIDERS: ADMIT Family Medicine; ATTEND Family Medicine
PROC: 4A133R1 Monitoring of Arterial Saturation, Peripheral, Percutaneous Approach (ICD-10-PCS; 2022-10-16)
PROC: 0W3P8ZZ Control Bleeding in Gastrointestinal Tract, Via Natural or Artificial Opening Endoscopic (ICD-10-PCS; principal; 2022-10-17)
PROC: 30233N1 Transfusion of Nonautologous Red Blood Cells into Peripheral Vein, Percutaneous Approach (ICD-10-PCS; 2022-10-17)
DX: K28.4 Chronic or unspecified gastrojejunal ulcer with hemorrhage (principal); E11.10 Type 2 diabetes mellitus with ketoacidosis without coma; D62 Acute posthemorrhagic anemia; E87.1 Hypo-osmolality and hyponatremia; N17.9 Acute kidney failure, unspecified; I10 Essential (primary) hypertension; K21.9 Gastro-esophageal reflux disease without esophagitis; F32.9 Major depressive disorder, single episode, unspecified; M19.90 Unspecified osteoarthritis, unspecified site; F41.1 Generalized anxiety disorder; E87.5 Hyperkalemia; E83.51 Hypocalcemia; E66.9 Obesity, unspecified; Z68.36 Body mass index [BMI] 36.0-36.9, adult; F32.A Depression, unspecified; Z20.822 Contact with and (suspected) exposure to COVID-19; Z88.8 Allergy status to other drugs, medicaments and biological substances; Z91.013 Allergy to seafood; Z79.899 Other long term (current) drug therapy; Z79.84 Long term (current) use of oral hypoglycemic drugs; Z79.4 Long term (current) use of insulin; Z98.890 Other specified postprocedural states
CPT/HCPCS: 36415; 36416; 36430; 71045; 80048; 80053; 82010; 82274; 82728; 82805; 83010; 83540; 83550; 83605; 83690; 83735; 84100; 84466; 84484; 85025; 86850; 86900; 86901; 87040; 96361; 96365; 96366; 96374; 96375; C9113; J1815; J2405; J2704; J3246; J3480; J3490; J7042; J7611; P9016; U0002

== ENCOUNTER 2023-01-08 08:39 | Emergency (ER) | payer MEDICARE ==
[2023-01-08] MEDS ORDERED: Lidocaine 1% w/Epinephrine 1:100K 20 ML VIAL ONE (09:05)
[2023-01-08] MEDS ORDERED: Morphine 4 MG/ML VIAL ONE (09:55)
[2023-01-08] MEDS ORDERED: Ketorolac Tromethamine 30 MG/ML VIAL ONE (09:56)
== END 2023-01-08 10:32 | disposition home or self-care (01) ==
LOC: ERS 08:39
DX: L02.31 Cutaneous abscess of buttock (principal); E11.9 Type 2 diabetes mellitus without complications; I10 Essential (primary) hypertension; Z79.899 Other long term (current) drug therapy; Z79.82 Long term (current) use of aspirin
CPT/HCPCS: 10060; 87070; 87077; 87186; 87205; 96372; J1885; J2270